=== PATIENT | male | born 1965 | race Caucasian/White ===

== ENCOUNTER 2020-02-02 14:17 | Inpatient (IN) | payer OTHER ==
[~2020-02-02] VITALS: Ht 193 cm; Wt 86.4 kg
[2020-02-02 15:13] LABS: Alanine Aminotransfer (ALT/SGP 18 U/L (12-78); Albumin, Blood 3.1 g/dL (3.4-5.0); Albumin/Globulin Ratio 0.9 (0.8-1.8); Alk Phos 180 U/L (50-136); Anion Gap 9 mmol/L (6-16); Aspartate Aminotrans (AST/SGOT 21 U/L (12-37); Bilirubin, Total 0.5 mg/dL (0.1-1.0); Blood Urea Nitrogen 13 mg/dL (8-24); Bun/Creatinine Ratio 13.9 (12.0-20.0); CO2, Blood 22 mmol/L (21-32); Calcium, Blood 8.1 mg/dL (8.5-10.1); Chloride, Blood 108 mmol/L (98-108); Creatinine, Blood 0.94 mg/dL (0.60-1.20); Globulin, Blood 3.3 g/dL (2.2-4.0); Glomerular Filtration Rate >60 (60-); Glucose, Blood 103 mg/dL (70-99); Potassium, Blood 3.4 mmol/L (3.5-5.5); Sodium, Blood 139 mmol/L (136-145); Total Protein, Blood 6.4 g/dL (6.4-8.2)
[2020-02-02 16:09] LABS: BASOPHILS ABSOLUTE AUTO 0.05 K/mm3 (0.00-0.23); BASOPHILS PERCENT AUTO 0 % (0-2); EOSINOPHILS ABSOLUTE AUTO 0.13 K/mm3 (0.00-0.68); EOSINOPHILS PERCENT AUTO 1 % (0-6); IMMATURE GRAN ABSOLUTE AUTO 0.07 K/mm3 (0.00-0.10); IMMATURE GRAN PERCENT AUTO 1 % (0-1); LYMPHOCYTES ABSOLUTE AUTO 1.26 K/mm3 (0.84-5.20); LYMPHOCYTES PERCENT AUTO 11 % (21-46); MONOCYTES PERCENT AUTO 5 % (4-13); Mean Corpuscular HGB 23.4 pg (26.0-34.0); Mean Corpuscular HGB Conc 28.8 g/dL (31.5-36.5); Mean Corpuscular Volume 81 fL (80-100); Mean Platelet Volume 10.7 fL (9.1-12.4); NEUTROPHILS ABSOLUTE AUTO 9.43 K/mm3 (1.96-9.15); NEUTROPHILS PERCENT AUTO 82 % (41-73); Platelet Count 391 K/mm3 (150-400); RDW Coefficient Variation 16.9 % (11.7-14.2); RDW Standard Deviation 49.6 fL (35.1-46.3); Red Blood Cell Count 2.01 M/mm3 (4.30-5.90); White Blood Cell Count 11.54 K/mm3 (4.00-11.30)
[2020-02-02 16:12] LABS: Hemoglobin 4.7 g/dL (13.5-17.5)
[2020-02-02 16:13] LABS: Hematocrit 16.3 % (37.0-53.0)
[2020-02-02] MEDS ORDERED: PREG50 PO (16:30)
[2020-02-02] MEDS ORDERED: ELIQUIS5 MG PO (16:30)
[2020-02-02 19:31] LABS: Hematocrit 15.4 % (37.0-53.0); Hemoglobin 4.5 g/dL (13.5-17.5)
[2020-02-02 19:32] LABS: International Normalized Ratio 1.07; Prothrombin Time Results 11.4 Sec (9.7-11.5)
[2020-02-03 04:27] LABS: Hematocrit 19.4 % (37.0-53.0); Mean Corpuscular HGB 24.8 pg (26.0-34.0); Mean Corpuscular HGB Conc 30.9 g/dL (31.5-36.5); Mean Corpuscular Volume 80 fL (80-100); Mean Platelet Volume 10.3 fL (9.1-12.4); Platelet Count 357 K/mm3 (150-400); RDW Coefficient Variation 16.5 % (11.7-14.2); RDW Standard Deviation 48.7 fL (35.1-46.3); Red Blood Cell Count 2.42 M/mm3 (4.30-5.90); White Blood Cell Count 7.45 K/mm3 (4.00-11.30)
[2020-02-03 04:46] LABS: Anion Gap 11 mmol/L (6-16); Blood Urea Nitrogen 16 mg/dL (8-24); Bun/Creatinine Ratio 17.1 (12.0-20.0); CO2, Blood 19 mmol/L (21-32); Calcium, Blood 7.2 mg/dL (8.5-10.1); Chloride, Blood 110 mmol/L (98-108); Creatinine, Blood 0.94 mg/dL (0.60-1.20); Glomerular Filtration Rate >60 (60-); Glucose, Blood 82 mg/dL (70-99); Potassium, Blood 3.4 mmol/L (3.5-5.5); Sodium, Blood 140 mmol/L (136-145)
--- NOTE | 2020-02-03 07:52 | NUR ---
SHIFT SUMMARY PT ARRIVED VIA STRETCHER FROM ER START OF SHIFT; PT SELF TRANSFERED TO BED; HGB 4.5; 2 UNITS PRBC TRANSFUSED; VSS; DENIES CHEST PAIN; O2 SATS >93 ON RA; PT C/O CHRONIC PAIN DUE TO RA AND BUERGER'S DISEASE; FENTANYL AND DILAUDID ADMINISTERED PER EMAR; PT STATES HE USES MARIJUANA DAILY, REPORTS USING 4 GRAMS DEPENDING ON "HOW BAD THE PAIN IS THAT DAY"; WARM BLANKETS BROUGHT TO PT HE STATES HE IS "ALWAYS COLD"; PT HAS NO TEETH AND STATES HIS DENTURES ARE AT HOME; AM LABS REPORTED TO PROVIDER W/ HGB OF 6.0; NEW ORDER FOR PRBC GIVEN; CALL LIGHT IN REACH; BED IN LOWEST POSITION; REPORT GIVEN TO DAY SHIFT RN.
[2020-02-03 13:24] LABS: Hematocrit 20.6 % (37.0-53.0); Hemoglobin 6.5 g/dL (13.5-17.5)
--- NOTE | 2020-02-03 19:46 | NUR ---
SHIFT SUMMARY A&O X4, VSS, LOW GRADE TEMP NOTED, PT REFUSED TYLENOL. UNIT PRBC'S INFUSED PER ORDERS, PT TOLERATED INFUSION WITH NO PROBLEMS. PROTONIX GTT INFUSING PER EMAR. PAIN MEDIACTED WITH MG IV DILAUDID. PAIN MEDS CHANGED PER AFTER SPEAKING WITH PT FROM MCG IV FENTANYL Q2 HRS DUE TO INSUFFICIENT PAIN CONTROL. PT IS INDEPENDENT IN THE ROOM, CALLS PRN, VOIDING WNL, NO STOOLS OR EMESIS NOTED. SCD'S ARE ON, CALL LIGHT IN REACH. REPORT GIVEN TO MACRINA CHAU.
[2020-02-04 00:59] LABS: Hematocrit 23.7 % (37.0-53.0); Hemoglobin 7.7 g/dL (13.5-17.5); Mean Corpuscular HGB 26.3 pg (26.0-34.0); Mean Corpuscular HGB Conc 32.5 g/dL (31.5-36.5); Mean Corpuscular Volume 81 fL (80-100); Mean Platelet Volume 10.1 fL (9.1-12.4); Platelet Count 320 K/mm3 (150-400); RDW Coefficient Variation 16.5 % (11.7-14.2); RDW Standard Deviation 48.4 fL (35.1-46.3); Red Blood Cell Count 2.93 M/mm3 (4.30-5.90); White Blood Cell Count 9.55 K/mm3 (4.00-11.30)
[2020-02-04 02:45] LABS: Albumin, Blood 2.6 g/dL (3.4-5.0); Anion Gap 8 mmol/L (6-16); Blood Urea Nitrogen 11 mg/dL (8-24); Bun/Creatinine Ratio 13.2 (12.0-20.0); CO2, Blood 22 mmol/L (21-32); Chloride, Blood 110 mmol/L (98-108); Creatinine, Blood 0.83 mg/dL (0.60-1.20); Glomerular Filtration Rate >60 (60-); Glucose, Blood 82 mg/dL (70-99); Phosphorus, Blood 1.5 mg/dL (2.5-4.9); Potassium, Blood 3.4 mmol/L (3.5-5.5); Sodium, Blood 140 mmol/L (136-145)
--- NOTE | 2020-02-04 07:39 | NUR ---
SHIFT SUMMARY PT A&O; VSS; O2 SATS >93 ON RA; C/O CHRONIC PAIN; DILAUDID GIVEN PER EMAR; PT CONSISTENT AT THE 2HR PAMELA TO CALL FOR PAIN RELIEF; 1 UNIT PRBC ADMINISTERED W/ NO ISSUE; AM LABS HGB IMPROVED TO 7.7; PT NPO IN PREPARATION FOR SCOPE PROCEDURE; CALL LIGHT IN REACH; BED IN LOWEST POSITION; REPORT GIVEN TO DAY SHIFT RN.
--- NOTE | 2020-02-04 19:46 | NUR ---
SHIFT SUMMARY NO ACUTE CHANGES NOTED THROUGH THE DAY. PT CONTINUES TO DENY NAUSEA, NO BM NOTED, VSS, RESP UNLABORED, ON RA. PT HAD EGD THIS AFTERNOON, WAS IN THE ROOM POST PROCEDURE TO SPEAK WITH PT. PT C/O 9/10 PAIN THROUGH THE DAY, HE IS REQUIRING 1 MG IV DILAUDID Q2 HRS. PT WAS ENC TO DECREASE MEDICATION FREQUENCY TOLERATED, EDUCATION PROVIDED, PT IS NON RECEPTIVE, EDUCATION CONT TO BE ENFORCED THROUGH THE SHIFT. PT IS TOLERATING CLEAR FLUIDS, VOIDING WNL. REPORT GIVEN TO NOC RN, CALL LIGHT IN REACH.
--- NOTE | 2020-02-05 03:43 | NUR ---
PROVIDER CALLED DR SHAFFER REGARDING PT'S LAST LAB VALUES (K 3.4, PHOS 1.5, HGB 7.7) AND PT'S RECENT HX OF 4U PRBC'S, EGD 02/04/20, AND REPLENISHING IV FLUIDS. INFORMED THAT THERE HAD NOT BEEN ANY LAB ORDERS PLCED FOR THIS AM. DR SHAFFER STATES THAT SHE WILL REVIEW AND ORDER LABS IF NEEDED.
[2020-02-05 04:25] LABS: BASOPHILS ABSOLUTE AUTO 0.07 K/mm3 (0.00-0.23); BASOPHILS PERCENT AUTO 1 % (0-2); EOSINOPHILS ABSOLUTE AUTO 0.47 K/mm3 (0.00-0.68); EOSINOPHILS PERCENT AUTO 6 % (0-6); Hematocrit 23.1 % (37.0-53.0); Hemoglobin 7.4 g/dL (13.5-17.5); IMMATURE GRAN ABSOLUTE AUTO 0.03 K/mm3 (0.00-0.10); IMMATURE GRAN PERCENT AUTO 0 % (0-1); LYMPHOCYTES ABSOLUTE AUTO 1.85 K/mm3 (0.84-5.20); LYMPHOCYTES PERCENT AUTO 22 % (21-46); MONOCYTES ABSOLUTE AUTO 0.84 K/mm3 (0.16-1.47); MONOCYTES PERCENT AUTO 10 % (4-13); Mean Corpuscular HGB 26.2 pg (26.0-34.0); Mean Corpuscular Volume 82 fL (80-100); Mean Platelet Volume 10.3 fL (9.1-12.4); NEUTROPHILS ABSOLUTE AUTO 5.08 K/mm3 (1.96-9.15); NEUTROPHILS PERCENT AUTO 61 % (41-73); Platelet Count 309 K/mm3 (150-400); RDW Coefficient Variation 17.2 % (11.7-14.2); RDW Standard Deviation 50.7 fL (35.1-46.3); Red Blood Cell Count 2.82 M/mm3 (4.30-5.90); White Blood Cell Count 8.34 K/mm3 (4.00-11.30)
[2020-02-05 04:39] LABS: Albumin, Blood 2.7 g/dL (3.4-5.0); Anion Gap 7 mmol/L (6-16); Blood Urea Nitrogen 6 mg/dL (8-24); Bun/Creatinine Ratio 6.6 (12.0-20.0); CO2, Blood 24 mmol/L (21-32); Chloride, Blood 108 mmol/L (98-108); Creatinine, Blood 0.91 mg/dL (0.60-1.20); Glomerular Filtration Rate >60 (60-); Glucose, Blood 87 mg/dL (70-99); Phosphorus, Blood 1.5 mg/dL (2.5-4.9); Potassium, Blood 3.7 mmol/L (3.5-5.5); Sodium, Blood 139 mmol/L (136-145)
--- NOTE | 2020-02-05 05:24 | NUR ---
END OF SHIFT SUMMARY PATIENT A&0. VSS. O2 >92% ON RA. PATIENT COMPLAINS OF ABDOMEN AND HAND PAIN. ADMINISTERED DILAUDID Q2 PER EMAR. RBC AND H&H LABS STILL LOW PER MORNING RESULTS. PATIENT INDEPENDENT, USES URINAL OFTEN. NO STOOLS NOTED. PT TOLERATED BROTH BUT PREFERRED TEA MOST OF THE NIGHT. PT USED CALL LIGHT PRN. PT IS COOPERATIVE. SLEPT ON AND OFF T/O THE NIGHT. CALL LIGHT WITHIN REACH. BED LOWERED TO LOWEST POSITION. WILL CONTINUE TO MONITOR UNTIL END OF SHIFT.
--- NOTE | 2020-02-05 05:28 | NUR ---
PROVIDER DR SHAFFER CALLED REGARDING AM LABS. HGB DROP FROM 7.7 - 7.5, PHOS REMAINED AT 1.5. UPDATED ON PT'S STATUS POST EGD, HAVING RECEIVED 4U PRBC OVER THE ADMISSION, ETC. ORDERS RECEIVED FOR MEDICATION.
--- NOTE | 2020-02-05 09:58 | NUR ---
AM DAYSHIFT NOTE - TRANSFER TO MEDICAL FLOOR PATIENT ALERT AND ORIENTED X4. RESP E/U ON ROOM AIR. PATIENT MED NO TELE. PATIENT REPORTS ONGOING CHRONIC PAIN OF BILATERAL HANDS - STATES HE SMOKE MARIJUANA AT HOME FOR PAIN NORMALY BECAUSE NO ONE WILL PRESCRIBE HIM PAIN MEDICATIONS. PATIENT ALSO HAS CHRONIC PANCREATITIS THAT IS ONGOING - RELIEVED WITH DILAUDID PER PATIENT - PATIENT REFUSING TO TAKE TYLENOL. PATIENT INDEPENDENT IN ROOM WITH ONLY LIMITATION BEING FINGER AMPUTATIONS. PATIENT LEFT UNIT VIA WHEELCHAIR TO MEDICAL FLOOR ROOM 324 IN NO ACUTE DISTRESS. VSS. REPORT TO MEDICAL FLOOR RN AND MEDICAL FLOOR RN STUDENT.
--- NOTE | 2020-02-05 10:32 | NUR ---
02/05/20 1032 Osvaldo Cowan MONITOR INTACT WITH CONTINUOUS PULSE OXIMETRY AND INTERMITTENT BP. 3-LEAD EKG REVIEWED WITH PHYSICIAN PRIOR TO START OF PROCEDURE.O2 VIA N/C INTACT THROUGHOUT SEDATION/PROCEDURE.PATIENT DETERMINED TO BE ASA APPROPRIATE FOR PROPOFOL SEDATION PRIOR TO START OF PROCEDURE BY DR. B[place]. History, Chart, Medications and Allergies reviewed before start of procedure.
[2020-02-05 13:44] LABS: Hemoglobin 7.7 g/dL (13.5-17.5)
--- NOTE | 2020-02-05 16:33 | NUR ---
SHIFT SUMMARY PT MEDICATED X2 FOR PAIN PER EMAR THIS SHIFT. PT DENIES NAUSEA, SOB. PT HAS POOR PO INTAKE. DIET ADVANCED TO [facility] SOFT FOR DINNER. PT UP STAND BY ASSIST USING URINAL AT BEDSIDE. PROTONIX DRIP RUNNING. NO ACUTE CHANGES THIS SHIFT. CALL LIGHT IN REACH.
[2020-02-05 20:54] LABS: Stool Occult Bld Immuno 1 Positive (NEGATIVE)
--- NOTE | 2020-02-06 05:58 | NUR ---
SHIFT SUMMARY PT HAS RESTED OFF AND ON THIS SHIFT. PT CONTINUES TO HAVE ABD PAIN AND HAS REQUESTED PRN'S Q4HR WHEN THEY ARE DUE. ADVANCED DIET TOLERATED. PT HAS BEEN ABLE TO EAT SOME. PT STILL IS REPORTING SOME NAUSEA. ABD IS SOFT AND TENDER WITH PALPATION. BOWEL TONES HYPERACTIVE. PT HAS HAD SEVERAL BM'S SINCE STARTING MIRALAX AND REQUESTED NOT TO RECEIVE HS DOSE. VITALS ARE STABLE. PT INDEPENDENT AND AMBULATORY IN THE ROOM. POSS DC TODAY. BED IN LOWEST POSITION, CALL LIGHT WITHIN REACH. WILL CONTINUE TO MONITOR AND REPORT TO ONCOMING RN.
--- NOTE | 2020-02-06 06:18 | NUR ---
POSITIVE STOOL SAMPLE DR. SHAFFER NOTIFIED OF POSITIVE STOOL SAMPLE THIS SHIFT. MARINO PATEL PRINCIPAL DATABASE DEVELOPER NOTIFIED. NO REPEAT H&H ORDERED FOR THIS AM. H&H WAS 7.7 WHEN CHECKED YESTERDAY AROUND 1300. RECEIVED ORDER FOR H&H THIS AM.
[2020-02-06 08:07] LABS: Hematocrit 25.7 % (37.0-53.0)
[2020-02-06] MEDS ORDERED: ACET325 PO (09:02)
[2020-02-06] MEDS ORDERED: PANT40 PO (09:02)
[2020-02-06] MEDS ORDERED: Magnesium-Alum360 ML PO (09:03)
--- NOTE | 2020-02-06 12:36 | NUR ---
SUMMARY/DISCHARGE PT DISCHARGED TO HOME, PT FOLLOW UP ALREADY MADE, PT VERBALIZED UNDERSTANDING OF DISCHARGE INSTRUCTIONS AND FOLLOW UP, TRANSPORTATION ARRANGED WITH [facility], PT TAKEN DOWN VIA WHEELCHAIR
== END 2020-02-06 12:35 | disposition home or self-care (01) | DRG 378 ==
LOC: ER 14:17 → PCU 14:18 → MEDS 02-05 09:15
PROVIDERS: Emergency Medicine; Family Medicine; Internal Medicine Gastroenterology; ADMIT Internal Medicine
PROC: 30283B1 Transfusion of Nonautologous 4-Factor Prothrombin Complex Concentrate into Vein, Percutaneous Approach (ICD-10-PCS; 2020-02-02)
PROC: 0DD68ZX Extraction of Stomach, Via Natural or Artificial Opening Endoscopic, Diagnostic (ICD-10-PCS; principal; 2020-02-04 14:30)
DX: K25.4 Chronic or unspecified gastric ulcer with hemorrhage (principal); D62 Acute posthemorrhagic anemia; K86.1 Other chronic pancreatitis; Z87.891 Personal history of nicotine dependence; Z89.029 Acquired absence of unspecified finger(s); Z86.718 Personal history of other venous thrombosis and embolism; E87.6 Hypokalemia; I73.1 Thromboangiitis obliterans [Buerger's disease]; K59.00 Constipation, unspecified; E83.39 Other disorders of phosphorus metabolism
CPT/HCPCS: 36415; 36430; 74175; 74176; 80048; 80053; 80069; 82274; 82728; 83540; 83550; 83690; 85014; 85018; 85025; 85027; 85610; 85730; 86850; 86900; 86901; 86923; 88305; 88342; 93005; 93010; 96361-59; 96374-59; 96375-59; 99285-25; A9270-GY; C1751; C9113; J1170; J2250; J2405; J2704; J2916; J3010; J3480; J7030; J7050; J7060; J7120; P9016; Q9967

== ENCOUNTER → 2020-02-14 | Outpatient (CLI) | payer OTHER ==
[~2020-02-14] MED LIST: ACET325 PO; ELIQUIS5 MG PO; Magnesium-Alum360 ML PO; PANT40 PO; PREG50 PO
[2020-02-14 20:00] LABS: BASOPHILS ABSOLUTE AUTO 0.09 K/mm3 (0.00-0.23); BASOPHILS PERCENT AUTO 1 % (0-2); EOSINOPHILS ABSOLUTE AUTO 0.21 K/mm3 (0.00-0.68); EOSINOPHILS PERCENT AUTO 3 % (0-6); Hematocrit 34.6 % (37.0-53.0); Hemoglobin 9.9 g/dL (13.5-17.5); IMMATURE GRAN ABSOLUTE AUTO 0.03 K/mm3 (0.00-0.10); IMMATURE GRAN PERCENT AUTO 0 % (0-1); LYMPHOCYTES ABSOLUTE AUTO 2.29 K/mm3 (0.84-5.20); LYMPHOCYTES PERCENT AUTO 27 % (21-46); MONOCYTES ABSOLUTE AUTO 0.93 K/mm3 (0.16-1.47); MONOCYTES PERCENT AUTO 11 % (4-13); Mean Corpuscular HGB 24.4 pg (26.0-34.0); Mean Corpuscular HGB Conc 28.6 g/dL (31.5-36.5); Mean Platelet Volume 10.7 fL (9.1-12.4); NEUTROPHILS ABSOLUTE AUTO 4.81 K/mm3 (1.96-9.15); NEUTROPHILS PERCENT AUTO 58 % (41-73); Platelet Count 498 K/mm3 (150-400); RDW Coefficient Variation 18.7 % (11.7-14.2); Red Blood Cell Count 4.05 M/mm3 (4.30-5.90); White Blood Cell Count 8.36 K/mm3 (4.00-11.30)
[2020-02-14 20:06] LABS: Mean Corpuscular Volume 85 fL (80-100)
[2020-02-14 20:16] LABS: Potassium, Blood 4.3 mmol/L (3.5-5.5)
== END | disposition home or self-care (01) ==
LOC: LAB 18:59 → LAB SHORT 18:59
PROVIDERS: Family Medicine
DX: K86.1 Other chronic pancreatitis (principal); D64.9 Anemia, unspecified
CPT/HCPCS: 80051; 83690; 85025

== ENCOUNTER 2020-02-16 19:40 | Emergency (ER) | payer OTHER ==
[~2020-02-16] VITALS: Ht 193 cm; Wt 73.5 kg
[2020-02-16 20:13] LABS: BASOPHILS ABSOLUTE AUTO 0.07 K/mm3 (0.00-0.23); BASOPHILS PERCENT AUTO 1 % (0-2); EOSINOPHILS ABSOLUTE AUTO 0.23 K/mm3 (0.00-0.68); EOSINOPHILS PERCENT AUTO 3 % (0-6); Hematocrit 32.4 % (37.0-53.0); Hemoglobin 9.5 g/dL (13.5-17.5); IMMATURE GRAN ABSOLUTE AUTO 0.04 K/mm3 (0.00-0.10); IMMATURE GRAN PERCENT AUTO 0 % (0-1); LYMPHOCYTES ABSOLUTE AUTO 2.36 K/mm3 (0.84-5.20); LYMPHOCYTES PERCENT AUTO 26 % (21-46); MONOCYTES ABSOLUTE AUTO 0.59 K/mm3 (0.16-1.47); MONOCYTES PERCENT AUTO 7 % (4-13); Mean Corpuscular HGB 24.3 pg (26.0-34.0); Mean Corpuscular HGB Conc 29.3 g/dL (31.5-36.5); Mean Corpuscular Volume 83 fL (80-100); NEUTROPHILS ABSOLUTE AUTO 5.73 K/mm3 (1.96-9.15); NEUTROPHILS PERCENT AUTO 64 % (41-73); Platelet Count 527 K/mm3 (150-400); RDW Coefficient Variation 18.5 % (11.7-14.2); Red Blood Cell Count 3.91 M/mm3 (4.30-5.90); White Blood Cell Count 9.02 K/mm3 (4.00-11.30)
[2020-02-16 20:29] LABS: Alanine Aminotransfer (ALT/SGP 19 U/L (12-78); Albumin, Blood 2.9 g/dL (3.4-5.0); Albumin/Globulin Ratio 0.7 (0.8-1.8); Alk Phos 321 U/L (50-136); Anion Gap 7 mmol/L (6-16); Aspartate Aminotrans (AST/SGOT 46 U/L (12-37); Bilirubin, Total 0.4 mg/dL (0.1-1.0); Blood Urea Nitrogen 13 mg/dL (8-24); Bun/Creatinine Ratio 15.1 (12.0-20.0); CO2, Blood 24 mmol/L (21-32); Calcium, Blood 8.9 mg/dL (8.5-10.1); Chloride, Blood 105 mmol/L (98-108); Creatinine, Blood 0.86 mg/dL (0.60-1.20); Globulin, Blood 4.2 g/dL (2.2-4.0); Glomerular Filtration Rate >60 (60-); Glucose, Blood 113 mg/dL (70-99); Potassium, Blood 3.6 mmol/L (3.5-5.5); Sodium, Blood 136 mmol/L (136-145); Total Protein, Blood 7.1 g/dL (6.4-8.2); Troponin I <0.015 ng/mL (0.000-0.040)
== END 2020-02-16 22:15 | disposition home or self-care (01) ==
LOC: ER 19:40
PROVIDERS: Physician Assistant
DX: K85.90 Acute pancreatitis without necrosis or infection, unspecified (principal); K86.1 Other chronic pancreatitis; Z79.899 Other long term (current) drug therapy; Z79.01 Long term (current) use of anticoagulants; Z86.718 Personal history of other venous thrombosis and embolism; Z87.891 Personal history of nicotine dependence
CPT/HCPCS: 36415; 80053; 82272; 83690; 84484; 85025; 93005; 93010; 96374; 96375; 96376; 99285-25; A9270; J1170; J2405

== ENCOUNTER 2020-02-17 23:38 | Inpatient (IN) | payer OTHER ==
[~2020-02-17] VITALS: Ht 193 cm; Wt 75.9 kg
[2020-02-18 01:14] LABS: BASOPHILS ABSOLUTE AUTO 0.07 K/mm3 (0.00-0.23); BASOPHILS PERCENT AUTO 1 % (0-2); EOSINOPHILS PERCENT AUTO 1 % (0-6); Hematocrit 31.4 % (37.0-53.0); Hemoglobin 9.5 g/dL (13.5-17.5); IMMATURE GRAN ABSOLUTE AUTO 0.04 K/mm3 (0.00-0.10); IMMATURE GRAN PERCENT AUTO 0 % (0-1); LYMPHOCYTES PERCENT AUTO 19 % (21-46); MONOCYTES ABSOLUTE AUTO 0.69 K/mm3 (0.16-1.47); MONOCYTES PERCENT AUTO 7 % (4-13); Mean Corpuscular HGB 24.7 pg (26.0-34.0); Mean Corpuscular HGB Conc 30.3 g/dL (31.5-36.5); Mean Corpuscular Volume 82 fL (80-100); Mean Platelet Volume 9.9 fL (9.1-12.4); NEUTROPHILS ABSOLUTE AUTO 6.99 K/mm3 (1.96-9.15); NEUTROPHILS PERCENT AUTO 72 % (41-73); Platelet Count 663 K/mm3 (150-400); RDW Coefficient Variation 18.5 % (11.7-14.2); RDW Standard Deviation 55.4 fL (35.1-46.3); Red Blood Cell Count 3.85 M/mm3 (4.30-5.90); White Blood Cell Count 9.79 K/mm3 (4.00-11.30)
[2020-02-18 01:33] LABS: Alanine Aminotransfer (ALT/SGP 161 U/L (12-78); Albumin, Blood 3.2 g/dL (3.4-5.0); Albumin/Globulin Ratio 0.7 (0.8-1.8); Alk Phos 501 U/L (50-136); Anion Gap 10 mmol/L (6-16); Aspartate Aminotrans (AST/SGOT 269 U/L (12-37); Bilirubin, Total 1.7 mg/dL (0.1-1.0); Blood Urea Nitrogen 13 mg/dL (8-24); Bun/Creatinine Ratio 13.3 (12.0-20.0); CO2, Blood 23 mmol/L (21-32); Calcium, Blood 9.7 mg/dL (8.5-10.1); Chloride, Blood 105 mmol/L (98-108); Creatinine, Blood 0.98 mg/dL (0.60-1.20); Globulin, Blood 4.4 g/dL (2.2-4.0); Glomerular Filtration Rate >60 (60-); Glucose, Blood 106 mg/dL (70-99); Potassium, Blood 3.7 mmol/L (3.5-5.5); Sodium, Blood 138 mmol/L (136-145); Total Protein, Blood 7.6 g/dL (6.4-8.2)
[2020-02-18 05:32] LABS: CHOL/HDL RATIO 8.8; Cholesterol 167 mg/dL (50-200); HDL Cholesterol 19 mg/dL (>39); LDL/HDL RATIO 6.6; Low Density Lipoprotein Chol 125 mg/dL (0-110); Triglycerides 113 mg/dL (30-160); Very Low Density Lipoprot Chol 22 mg/dL (6-32)
--- NOTE | 2020-02-18 06:40 | NUR ---
SHIFT SUMMARY PATIENT ARRIVED TO THE MEDICAL UNIT AT 0421 VIA STRETCHER. PATIENT IS ALERT AND ORIENTED X4 AND IS VERY PLEASANT. PATIENT IS STEADY ON HIS FEET AND IS ABLE TO SAFELY AMBULATE INDEPENDENTLY. PATIENT EXPERIENCING HIGH LEVELS OF ABDOMINAL PAIN DUE TO PANCREATITIS. IV PATENT AND INFUSING WITH NORMAL SALINE AT 100 ML/HR. BED IN LOWEST POSITION WITH WHEELS LOCKED. CALL LIGHT AND BELONGINGS WITHIN REACH. REPORT GIVEN TO ONCOMING RN.
--- NOTE | 2020-02-18 17:34 | NUR ---
SUMMARY PT IS A/O X4, PLEASANT AFFECT, IND IN ROOM. DX PANCREATITIS, LIPASE ELEVATED @ 2849, LFT'S ELEVATED. PT STATE HX RECURRENT PANCREATITIS. HE WAS NPO @ ONSET OF SHIFT, DR VANEGAS IN TO SEE HIM, STATE MAY HAVE ICE CHIPS, PO MEDS. PT STATE TOLD HIM WHEN HE FEELS READY TO TRY DIET ADV TO HAVE RN CALL HOWEVER HE STATE D/T ABD PAIN NOT READY TO ADV TODAY. STATE CONTINUING UPPER ABD PAIN, HAVE GIVEN PRN FENTANYL 50MCG ALTERNATING w DILAUDID 2MG APPROX Q3 TODAY FOR PAIN CONTROL/RELIEF. NS INFUSING @ 1OO ML/HR X 1.5 LITERS, NEARLY FINISHED. URINE VOIDS CONCENTRATED/EULOGIO. VSS.
--- NOTE | 2020-02-18 23:04 | NUR ---
1.5L NS INFUSED AND PT SL AT THIS TIME PER RX.
--- NOTE | 2020-02-19 04:45 | NUR ---
SUMMARY: PT IS A/OX4, INDEPENDENT AND CALLS APPROPRIATELY. HE REMAINS NPO EXCEPT ICE AND MEDS AND CONT'S TO HAVE MID ABDO AND L.LOWER QUAD PAIN. PT MEDICATED APPROX Q3H PRN W/FENT 50 MCG AND DILAUDID 2MG IV FOR TOLERABLE PAIN CONTROL. HE'S HAD INTERMITTENT NAUSEA W/ZOFRAN RECIEVED PRN FOR GOOD EFFECT. PT USES URINAL BY SELF AND WAS SL AFTER 1.5L NS INFUSED PER EMAR. IV IS PATENT TO JeraldFA/AC. NO ACUTE CHANGES, VSS/AFEBRILE. WCTM/REPORT TO DAY RN.
[2020-02-19 04:56] LABS: BASOPHILS ABSOLUTE AUTO 0.07 K/mm3 (0.00-0.23); BASOPHILS PERCENT AUTO 1 % (0-2); EOSINOPHILS PERCENT AUTO 6 % (0-6); Hematocrit 27.8 % (37.0-53.0); Hemoglobin 8.2 g/dL (13.5-17.5); IMMATURE GRAN ABSOLUTE AUTO 0.01 K/mm3 (0.00-0.10); IMMATURE GRAN PERCENT AUTO 0 % (0-1); LYMPHOCYTES ABSOLUTE AUTO 1.84 K/mm3 (0.84-5.20); LYMPHOCYTES PERCENT AUTO 34 % (21-46); MONOCYTES PERCENT AUTO 9 % (4-13); Mean Corpuscular HGB 24.6 pg (26.0-34.0); Mean Corpuscular HGB Conc 29.5 g/dL (31.5-36.5); Mean Corpuscular Volume 84 fL (80-100); Mean Platelet Volume 10.1 fL (9.1-12.4); NEUTROPHILS ABSOLUTE AUTO 2.77 K/mm3 (1.96-9.15); NEUTROPHILS PERCENT AUTO 50 % (41-73); Platelet Count 561 K/mm3 (150-400); RDW Coefficient Variation 18.7 % (11.7-14.2); RDW Standard Deviation 56.8 fL (35.1-46.3); Red Blood Cell Count 3.33 M/mm3 (4.30-5.90); White Blood Cell Count 5.49 K/mm3 (4.00-11.30)
[2020-02-19 05:26] LABS: Alanine Aminotransfer (ALT/SGP 131 U/L (12-78); Albumin, Blood 2.8 g/dL (3.4-5.0); Albumin/Globulin Ratio 0.7 (0.8-1.8); Alk Phos 484 U/L (50-136); Anion Gap 5 mmol/L (6-16); Aspartate Aminotrans (AST/SGOT 142 U/L (12-37); Bilirubin, Total 2.3 mg/dL (0.1-1.0); Blood Urea Nitrogen 9 mg/dL (8-24); Bun/Creatinine Ratio 11.3 (12.0-20.0); CO2, Blood 25 mmol/L (21-32); Chloride, Blood 107 mmol/L (98-108); Creatinine, Blood 0.79 mg/dL (0.60-1.20); Glomerular Filtration Rate >60 (60-); Glucose, Blood 83 mg/dL (70-99); Potassium, Blood 3.6 mmol/L (3.5-5.5); Sodium, Blood 137 mmol/L (136-145); Total Protein, Blood 6.8 g/dL (6.4-8.2)
--- NOTE | 2020-02-19 16:50 | NUR ---
SUMMARY PT CONTINUES TO STATE UPPER ABD PAIN THIS AM. DR VANEGAS IN TO SEE HIM ORDER START CL DIET, SHE CAUTION PT TO TAKE IN SM AMTS, SLOWLY, CAUTIOUSLY AND TO STOP IF PAIN OR NAUSEA INCREASES. HE HAS BEEN ABLE TO TOLERATE IN SM AMTS. HE STATE PAIN SOMEWHAT IMPROVED FROM PREVIOUS DAY HOWEVER CONTINUES, HE HAS CALLED FOR PAIN MEDICATION APPROX Q3 HRS. ALTERNATE BETWEEN DILAUDID & FENTANYL PREVIOUS DAY FOR PAIN RELIEF/CONTROL. HE IS AFEBRILE, VSS. HX BUERGERS DISEASE w MULT FINGER AMPUTATIONS BOTH HANDS HOWEVER MOSTLY IND IN ROOM, MINIMAL ASSIST.
--- NOTE | 2020-02-20 04:13 | NUR ---
SUMMARY: PT A/OX4, CALLS APPROPRIATELY AND IS PLEASANT/COOPERATIVE W/CARE. HE CONT'S TO HAVE ABDO PAIN AND REQUESTS PRN PAIN MEDS APPROX Q3H. RN ALTERNATED DILAUDID 2MG IV AND FENTANYL 50MCG IV T/O NOCTE FOR TOLERABLE RELIEF BUT PT NEVER REPORTS PAIN BETTER THAN 6/10. HE IS TOLERATING CLEAR LIQ'S IN SMALL AMTS AT A TIME AND IS DOING WELL TO SELF MONITOR THIS. HE HAS HX BUERGERS DISEASE W/MULTI FINGER AMPUTATIONS BUT IS INDEPENDENT IN ROOM AND REQ'S VERY MINIMAL ASSIST. PT USES URINAL AND AMBULATES TO TOILET PRN. PG PATENT TO L.ARM AND IS SL. VSS/AFEBRILE AND NO ACUTE CHANGES. WCTM AND REPORT TO DAY RN.
[2020-02-20 06:36] LABS: Hematocrit 26.9 % (37.0-53.0)
--- NOTE | 2020-02-20 06:50 | NUR ---
SUMMARY: A/OX4, CALLS APPROPRIATELY AND INDEPENDENT IN ROOM. HE'S DENIED PAIN, NAUSEA AND ALL OTHER COMPLAINTS THIS SHIFT AND HAS NOT REQUESTED PYRIDIUM PRN. ROCEPHIN AND VANCO BEING RECIEVED IV FOR PYELONEPHRITIS THEN SL. HE BEGAN SHIFT IN NSR W/PAC'S AT 90'S-100'S BPM BUT CONVERTED TO AFIB THIS SHIFT AT 0335. HE HAS KNOWN HX AFIB AND IS ON METOPROLOL AND CARDIZEM AT BASELINE. PT REMAINED ASYMTOMATIC OF CARDIAC DISTRESS AND AWOKE TO DENY CP, DIZZYNESS, NAUSEA AND SOB DESPITE CONVERSION. HIS HR AVERAGED 80'S-90'S BUT TRENDED UP TO 120'S PER PCU DECISION SCIENCE ANALYST WHILE DISCUSSING AFIB W/MD. HE ADMITTED TO AMBULATING IN ROOM AT THAT TIME W/SOME STRAINING TO VOID. WAS AWARE, SEE PREVIOUS NOTE FOR DETAILS BUT HR RESOLVED SPONTANEOUSLY UPON SETTLING IN BED AND NO STAT MEDS WERE REQUIRED. INCREASED PT'S LOVENOX SQ DOSE THIS AM AND 1ST DOSE WAS RECIEVED. PT AWARE TO NOTIFY STAFF IF HE BECOMES SYMPTOMATIC OR EXPERIENCES ANY CHANGES. VSS T/O NOCTE AND REMAINED SO DURING COVERSION TO AFIB. REPORT PROVIDED TO DAY RN.
[2020-02-20 06:53] LABS: Alanine Aminotransfer (ALT/SGP 99 U/L (12-78); Albumin, Blood 2.8 g/dL (3.4-5.0); Albumin/Globulin Ratio 0.7 (0.8-1.8); Alk Phos 421 U/L (50-136); Anion Gap 3 mmol/L (6-16); Aspartate Aminotrans (AST/SGOT 78 U/L (12-37); Bilirubin, Total 0.8 mg/dL (0.1-1.0); Blood Urea Nitrogen 5 mg/dL (8-24); CO2, Blood 27 mmol/L (21-32); Calcium, Blood 7.9 mg/dL (8.5-10.1); Chloride, Blood 107 mmol/L (98-108); Creatinine, Blood 0.83 mg/dL (0.60-1.20); Globulin, Blood 3.8 g/dL (2.2-4.0); Glomerular Filtration Rate >60 (60-); Glucose, Blood 110 mg/dL (70-99); Potassium, Blood 4.2 mmol/L (3.5-5.5); Sodium, Blood 137 mmol/L (136-145); Total Protein, Blood 6.6 g/dL (6.4-8.2)
--- NOTE | 2020-02-20 17:48 | NUR ---
PT PLEASANT COOP TODAY. FOCUSED ON WHEN CAN GET PAIN MEDS. PRESENTS QUITE PLEASANT AND RELAXED, BUT STATES IN 6-8 PAIN MOST OF TIME. STATES DID EAT LUNCH WITHOUT MUCH PAIN . INDEPENDANT IN ROOM. BED IN LOW POSITION, CALL LITE IN REACH, CALLS APPRIOP
--- NOTE | 2020-02-21 09:14 | NUR ---
SUMMARY PT GALDINO ESPINOSA PAIN CONTROL DISCUSSED GETS IRRITABLE AND STATES NO ONE CARES AND HIS DOCTORS HAVE NOT HELPED HIM GET TO A PAIN DR AND NOT ANY OF THE MULTIPLE HOSPITALS HE LISTS UP AND DOWN IV [facility] HAVE DONE ANYTHING EFFECTIVE FOR HIS PAIN. STATES IF THEY DISCONTINUE HIS IV DILAUDID HEWILL LEAVE DUE TO CHRONIC PAIN.THIS RNLISTENED AND ENCOURAGED PT.IGAVE MEDS PER ORDERS WHEN PTREQUESTED. I ADVISED PT WE WILL REQUEST OF HOSPITAL PHYSICIAN TO POSSIBLY ORDER OUTPT CX WITH PAIN DOCTOR. I DID ADVISE PT HE JEANNINE NEED TO DETERMINE IF HIS INSURANCE WILL COVER OUTPT CX.HOWEVER, WE WILL STILL ASK FOR CXORDER FOR OUTPT. PT REPORTS PLEASED WITH THIS.
[2020-02-21] MEDS ORDERED: DOCU100 PO (13:14)
[2020-02-21] MEDS ORDERED: Norco 5-325 Ta1 EACH PO (13:15)
[2020-02-21] MEDS ORDERED: CREON DR 6,0001 EACH PO (13:17)
[2020-02-21] MEDS ORDERED: ONDA4ODT SL (13:18)
[2020-02-21] MEDS ORDERED: PANT40 PO (13:18)
[2020-02-21] MEDS ORDERED: SENN187 PO (13:19)
--- NOTE | 2020-02-21 15:47 | NUR ---
SHIFT SUMMARY PT RESTING QUIETLY DURING SHIFT REPORT. MEDICATED FOR PAIN PRIOR TO REPORT. PT WOKE FOR CARE. INDEPENDENT IN RM. PT ABLE TO TOLERATE BREAKFAST AND LUNCH. ISTRATE IN TO SEE PT. D/C ORDERS PLACED. PT DID NOT APPEAR IN ANY ACUTE DISTRESS THIS SHIFT, BUT MEDICATED PER EMAR AND PT REQUEST. PT TALKATIVE AND JOKING WITH STAFF. ASSISTED OUT TO CAB VIA W/C. D/C MEDS FAXED TO [facility] PER PT REQUEST.
== END 2020-02-21 13:46 | disposition home or self-care (01) | DRG 440 ==
LOC: ER 23:38 → MEDS 02-18 03:56
PROVIDERS: Emergency Medicine; Internal Medicine; ADMIT Internal Medicine
DX: K85.90 Acute pancreatitis without necrosis or infection, unspecified (principal); K86.1 Other chronic pancreatitis; D64.9 Anemia, unspecified; I72.8 Aneurysm of other specified arteries; R94.5 Abnormal results of liver function studies; K25.9 Gastric ulcer, unspecified as acute or chronic, without hemorrhage or perforation; I73.1 Thromboangiitis obliterans [Buerger's disease]; G47.9 Sleep disorder, unspecified; M19.90 Unspecified osteoarthritis, unspecified site; G43.909 Migraine, unspecified, not intractable, without status migrainosus; G44.89 Other headache syndrome; Z89.029 Acquired absence of unspecified finger(s); Z86.718 Personal history of other venous thrombosis and embolism; Z87.891 Personal history of nicotine dependence
CPT/HCPCS: 36415; 74177; 80053; 80061; 83690; 85014; 85018; 85025; 96361; 96374; 96375; 96376; 99285-25; A9270-GY; C1751; C9113; J1170; J2405; J3010; J7030; Q9967

== ENCOUNTER 2020-03-06 13:29 | Inpatient (IN) | payer OTHER ==
[~2020-03-06] VITALS: Ht 193 cm; Wt 77.2 kg
[~2020-03-06 13:29] MED LIST changes: +CREON DR 12,001 EACH PO; +CREON DR 6,0001 EACH PO; +DOCU100 PO; +HYDR1TAB94 PO; +Norco 5-325 Ta1 EACH PO; +ONDA4ODT SL; +PROM25 PO; +SENN187 PO
[2020-03-06 14:52] LABS: BASOPHILS ABSOLUTE AUTO 0.06 K/mm3 (0.00-0.23); BASOPHILS PERCENT AUTO 1 % (0-2); EOSINOPHILS ABSOLUTE AUTO 0.15 K/mm3 (0.00-0.68); EOSINOPHILS PERCENT AUTO 1 % (0-6); Hematocrit 32.8 % (37.0-53.0); Hemoglobin 10.2 g/dL (13.5-17.5); IMMATURE GRAN ABSOLUTE AUTO 0.05 K/mm3 (0.00-0.10); IMMATURE GRAN PERCENT AUTO 0 % (0-1); LYMPHOCYTES ABSOLUTE AUTO 1.86 K/mm3 (0.84-5.20); LYMPHOCYTES PERCENT AUTO 14 % (21-46); MONOCYTES ABSOLUTE AUTO 0.82 K/mm3 (0.16-1.47); MONOCYTES PERCENT AUTO 6 % (4-13); Mean Corpuscular HGB 25.1 pg (26.0-34.0); Mean Corpuscular HGB Conc 31.1 g/dL (31.5-36.5); Mean Corpuscular Volume 81 fL (80-100); Mean Platelet Volume 9.8 fL (9.1-12.4); NEUTROPHILS ABSOLUTE AUTO 10.14 K/mm3 (1.96-9.15); NEUTROPHILS PERCENT AUTO 78 % (41-73); Platelet Count 317 K/mm3 (150-400); RDW Coefficient Variation 22.6 % (11.7-14.2); RDW Standard Deviation 65.7 fL (35.1-46.3); Red Blood Cell Count 4.06 M/mm3 (4.30-5.90); White Blood Cell Count 13.08 K/mm3 (4.00-11.30)
[2020-03-06 15:07] LABS: Alanine Aminotransfer (ALT/SGP 35 U/L (12-78); Albumin, Blood 3.2 g/dL (3.4-5.0); Albumin/Globulin Ratio 0.8 (0.8-1.8); Alk Phos 351 U/L (50-136); Anion Gap 8 mmol/L (6-16); Aspartate Aminotrans (AST/SGOT 53 U/L (12-37); Bilirubin, Total 0.5 mg/dL (0.1-1.0); Blood Urea Nitrogen 10 mg/dL (8-24); Bun/Creatinine Ratio 10.9 (12.0-20.0); CO2, Blood 25 mmol/L (21-32); Calcium, Blood 8.8 mg/dL (8.5-10.1); Chloride, Blood 104 mmol/L (98-108); Creatinine, Blood 0.91 mg/dL (0.60-1.20); Globulin, Blood 4.1 g/dL (2.2-4.0); Glomerular Filtration Rate >60 (60-); Glucose, Blood 96 mg/dL (70-99); Potassium, Blood 3.9 mmol/L (3.5-5.5); Sodium, Blood 137 mmol/L (136-145); Total Protein, Blood 7.3 g/dL (6.4-8.2)
--- NOTE | 2020-03-06 18:36 | NUR ---
ASSUMED CARE OF PT AT 1724 UPON HIS ARRIVAL FROM ED. A&O X 4, PLEASANT. C/O /10 ABDOMINAL PAIN; MEDICATED WITH DILAUDID WITH GOOD RELIEF. DENIES NAUSEA, LBM TODAY, NORMAL PER PT REPORT. AMBULATES INDEPENDENTLY. PLAN IS NPO FOR BOWEL REST AND PAIN CONTROL.
[2020-03-06 20:42] LABS: Source, Urine Clean Catch
[2020-03-06 20:45] LABS: Bilirubin, Urine Neg (Neg); Blood, Urine Neg (Neg); Glucose Qualitative, Urine Neg (Neg); Ketones, Urine Neg (Neg); Leukocyte Esterase, Urine Neg (Neg); Nitrite, Urine Neg (Neg); Protein, Urine Neg (Neg); Urobilinogen, Urine NORM (Normal)
[2020-03-06 20:46] LABS: Appearance, Urine Clear (Clear); Color, Urine Yellow (P-Yellow)
[2020-03-07 04:42] LABS: Hematocrit 31.8 % (37.0-53.0); Hemoglobin 9.4 g/dL (13.5-17.5); Mean Corpuscular HGB 24.8 pg (26.0-34.0); Mean Corpuscular HGB Conc 29.6 g/dL (31.5-36.5); Mean Corpuscular Volume 84 fL (80-100); Mean Platelet Volume 10.3 fL (9.1-12.4); Platelet Count 321 K/mm3 (150-400); RDW Coefficient Variation 22.7 % (11.7-14.2); RDW Standard Deviation 68.6 fL (35.1-46.3); Red Blood Cell Count 3.79 M/mm3 (4.30-5.90); White Blood Cell Count 5.01 K/mm3 (4.00-11.30)
[2020-03-07 05:09] LABS: Alanine Aminotransfer (ALT/SGP 178 U/L (12-78); Albumin, Blood 3.2 g/dL (3.4-5.0); Albumin/Globulin Ratio 0.9 (0.8-1.8); Alk Phos 463 U/L (50-136); Anion Gap 5 mmol/L (6-16); Aspartate Aminotrans (AST/SGOT 369 U/L (12-37); Bilirubin, Total 1.3 mg/dL (0.1-1.0); Blood Urea Nitrogen 8 mg/dL (8-24); Bun/Creatinine Ratio 9.2 (12.0-20.0); CO2, Blood 25 mmol/L (21-32); Chloride, Blood 107 mmol/L (98-108); Creatinine, Blood 0.87 mg/dL (0.60-1.20); Globulin, Blood 3.7 g/dL (2.2-4.0); Glomerular Filtration Rate >60 (60-); Glucose, Blood 106 mg/dL (70-99); Potassium, Blood 4.1 mmol/L (3.5-5.5); Sodium, Blood 137 mmol/L (136-145); Total Protein, Blood 6.9 g/dL (6.4-8.2)
--- NOTE | 2020-03-07 05:36 | NUR ---
SUMMARY PT CONTINUES TO HAVE ABD PAIN. PT RESPONDS WELL TO TX PER EMAR. PT DENIED ANY NAUSEA DURING SHIFT. PT HAS BEEN AWAKE MOST OF SHIFT. PT CURRENTLY RESTING AND IN NO DISTRESS. CALL LIGHT IN REACH.
--- NOTE | 2020-03-07 19:25 | NUR ---
SHIFT SUMMARY. A&OX4, INDEPENDENT IN ROOM, PLEASANT AND COOPERATIVE WITH CARE. PT WITH CONSTANT ABD PAIN THAT IS MANAGED WELL WITH CURRENT ORDERS. PT C/O NAUSEA WITHOUT VOMITTING TWICE THIS SHIFT, MANAGED WELL WITH CURRENT ORDERS. NO SOB. CONTINUES WITH NPO EXCEPT FOR ICE CHIPS. NO NEW CHANGES OR CONCERNS.
[2020-03-08 05:55] LABS: BASOPHILS ABSOLUTE AUTO 0.05 K/mm3 (0.00-0.23); BASOPHILS PERCENT AUTO 1 % (0-2); EOSINOPHILS ABSOLUTE AUTO 0.46 K/mm3 (0.00-0.68); EOSINOPHILS PERCENT AUTO 9 % (0-6); Hematocrit 31.4 % (37.0-53.0); Hemoglobin 9.1 g/dL (13.5-17.5); IMMATURE GRAN ABSOLUTE AUTO 0.01 K/mm3 (0.00-0.10); IMMATURE GRAN PERCENT AUTO 0 % (0-1); LYMPHOCYTES PERCENT AUTO 35 % (21-46); MONOCYTES ABSOLUTE AUTO 0.44 K/mm3 (0.16-1.47); MONOCYTES PERCENT AUTO 9 % (4-13); Mean Corpuscular HGB 24.5 pg (26.0-34.0); Mean Corpuscular Volume 85 fL (80-100); Mean Platelet Volume 10.4 fL (9.1-12.4); NEUTROPHILS ABSOLUTE AUTO 2.33 K/mm3 (1.96-9.15); NEUTROPHILS PERCENT AUTO 46 % (41-73); Platelet Count 280 K/mm3 (150-400); RDW Coefficient Variation 22.6 % (11.7-14.2); Red Blood Cell Count 3.71 M/mm3 (4.30-5.90); White Blood Cell Count 5.09 K/mm3 (4.00-11.30)
[2020-03-08 06:53] LABS: Alanine Aminotransfer (ALT/SGP 145 U/L (12-78); Albumin, Blood 3.1 g/dL (3.4-5.0); Albumin/Globulin Ratio 0.8 (0.8-1.8); Alk Phos 464 U/L (50-136); Anion Gap 7 mmol/L (6-16); Aspartate Aminotrans (AST/SGOT 157 U/L (12-37); Bilirubin, Total 0.7 mg/dL (0.1-1.0); Blood Urea Nitrogen 6 mg/dL (8-24); Bun/Creatinine Ratio 7.3 (12.0-20.0); CO2, Blood 22 mmol/L (21-32); Calcium, Blood 8.2 mg/dL (8.5-10.1); Chloride, Blood 108 mmol/L (98-108); Creatinine, Blood 0.83 mg/dL (0.60-1.20); Globulin, Blood 3.9 g/dL (2.2-4.0); Glomerular Filtration Rate >60 (60-); Glucose, Blood 76 mg/dL (70-99); Potassium, Blood 3.9 mmol/L (3.5-5.5); Sodium, Blood 137 mmol/L (136-145)
[2020-03-08 06:54] LABS: Percent Saturation 25.4 % (20.0-50.0)
[2020-03-08] MEDS ORDERED: HYDACE10B PO (11:50)
--- NOTE | 2020-03-08 12:07 | NUR ---
DISCHARGE INSTRUCTIONS REVIEWED WITH PT. IVX2 DC'D INTACT. RX FAXED TO [facility] AND HARD SCRIPT FOR NORCO GIVEN TO PT. [facility] CALLED FOR [facility] RIDE HOME, AWAITING RIDE AT THIS TIME. PT REPORTS HE WILL CALL AND SCHEDULE F/U APPT WITH PCP AND HE HAS REFERRAL OUT FOR A SCOPE IN [place]. PT WAS REQUESTING TO GO HOME TODAY, STATES HE CAN DEAL WITH THE PAIN AT HOME.
--- NOTE | 2020-03-08 12:17 | NUR ---
PT DISCHAGRED HOME VIA TAXI AT 1216, PT ESCORTED OUT VIA W/C.
[2020-03-12] MEDS ORDERED: CREON DR 12,001 EACH PO (16:02)
[2020-03-14] MEDS ORDERED: METR500 PO (17:41)
[2020-03-14] MEDS ORDERED: CIPR500 PO (17:42)
[2020-03-14] MEDS ORDERED: MIRALAX17 GM PO (17:42)
[2020-03-14] MEDS ORDERED: DOCU100 PO (17:43)
== END 2020-03-08 12:16 | disposition home or self-care (01) | DRG 440 ==
LOC: ER 13:29 → MEDS 16:18
PROVIDERS: Emergency Medicine; Nurse Practitioner Acute Care; ADMIT Internal Medicine
DX: K85.90 Acute pancreatitis without necrosis or infection, unspecified (principal); K86.1 Other chronic pancreatitis; J43.9 Emphysema, unspecified; D64.9 Anemia, unspecified; Z86.718 Personal history of other venous thrombosis and embolism; Z87.891 Personal history of nicotine dependence; I73.1 Thromboangiitis obliterans [Buerger's disease]; Z79.01 Long term (current) use of anticoagulants
CPT/HCPCS: 36415; 71046; 80053; 81003; 82728; 83540; 83550; 83690; 85025; 85027; 86850; 86900; 86901; 93005; 93010; 96361; 96374; 96375; 96376; 99285-25; G0378; J0780; J1170; J1885; J2405; J3480; J7030

== ENCOUNTER → 2020-05-20 | Outpatient (CLI) | payer OTHER ==
[~2020-05-20] MED LIST changes: +CIPR500 PO; +HYDACE10B PO; +METR500 PO; +MIRALAX17 GM PO
== END | disposition home or self-care (01) ==
LOC: LAB SHORT 15:00 → LAB 15:00
DX: D50.9 Iron deficiency anemia, unspecified (principal)
CPT/HCPCS: 82607; 82746

== ENCOUNTER 2020-06-13 12:57 | Inpatient (IN) | payer OTHER ==
[~2020-06-13] VITALS: Ht 193 cm; Wt 77.1 kg
[2020-06-13 14:35] LABS: BASOPHILS ABSOLUTE AUTO 0.07 K/mm3 (0.00-0.23); BASOPHILS PERCENT AUTO 1 % (0-2); EOSINOPHILS ABSOLUTE AUTO 0.07 K/mm3 (0.00-0.68); EOSINOPHILS PERCENT AUTO 1 % (0-6); Hemoglobin 8.7 g/dL (13.5-17.5); IMMATURE GRAN ABSOLUTE AUTO 0.02 K/mm3 (0.00-0.10); IMMATURE GRAN PERCENT AUTO 0 % (0-1); LYMPHOCYTES ABSOLUTE AUTO 1.02 K/mm3 (0.84-5.20); LYMPHOCYTES PERCENT AUTO 10 % (21-46); MONOCYTES ABSOLUTE AUTO 0.65 K/mm3 (0.16-1.47); MONOCYTES PERCENT AUTO 6 % (4-13); Mean Corpuscular HGB Conc 28.1 g/dL (31.5-36.5); Mean Corpuscular Volume 82 fL (80-100); Mean Platelet Volume 9.3 fL (9.1-12.4); NEUTROPHILS ABSOLUTE AUTO 8.86 K/mm3 (1.96-9.15); NEUTROPHILS PERCENT AUTO 83 % (41-73); Platelet Count 588 K/mm3 (150-400); RDW Coefficient Variation 21.8 % (11.7-14.2); RDW Standard Deviation 64.5 fL (35.1-46.3); Red Blood Cell Count 3.78 M/mm3 (4.30-5.90); White Blood Cell Count 10.69 K/mm3 (4.00-11.30)
[2020-06-13 14:45] LABS: Alanine Aminotransfer (ALT/SGP 25 U/L (12-78); Albumin, Blood 3.7 g/dL (3.4-5.0); Albumin/Globulin Ratio 0.9 (0.8-1.8); Alk Phos 235 U/L (50-136); Anion Gap 8 mmol/L (6-16); Aspartate Aminotrans (AST/SGOT 58 U/L (12-37); Bilirubin, Total 0.4 mg/dL (0.1-1.0); Blood Urea Nitrogen 14 mg/dL (8-24); Bun/Creatinine Ratio 16.1 (12.0-20.0); CO2, Blood 24 mmol/L (21-32); Calcium, Blood 9.8 mg/dL (8.5-10.1); Chloride, Blood 105 mmol/L (98-108); Creatinine, Blood 0.87 mg/dL (0.60-1.20); Glomerular Filtration Rate >60 (60-); Glucose, Blood 120 mg/dL (70-99); Potassium, Blood 3.8 mmol/L (3.5-5.5); Sodium, Blood 137 mmol/L (136-145); Total Protein, Blood 7.7 g/dL (6.4-8.2)
--- NOTE | 2020-06-13 19:41 | NUR ---
1900 PT ADMITTED TO ROOM 343 PER CART FROM ER; ALERT AND ORIENTED X 4; C/O ABD PAIN 8/10; NPO.
--- NOTE | 2020-06-14 05:05 | NUR ---
SHIFT SUMMARY: 44 Y/O MALE HAD RESTLESS NIGHT ALL SHIFT WITH C/O ABD PAIN RATED 9/10 WITH DILAUDID 1MG IVP GIVEN EVERY 2 HOURS WITH MODERATE PAIN RELIEF FELT; PT ALERT AND ORIENTED X 4; DENIES NAUSEA; BED LOW POSITION WITH CALL LIGHT AT SIDE.
[2020-06-14 05:27] LABS: BASOPHILS ABSOLUTE AUTO 0.06 K/mm3 (0.00-0.23); BASOPHILS PERCENT AUTO 1 % (0-2); EOSINOPHILS ABSOLUTE AUTO 0.29 K/mm3 (0.00-0.68); EOSINOPHILS PERCENT AUTO 5 % (0-6); Hematocrit 27.8 % (37.0-53.0); Hemoglobin 7.7 g/dL (13.5-17.5); IMMATURE GRAN ABSOLUTE AUTO 0.02 K/mm3 (0.00-0.10); IMMATURE GRAN PERCENT AUTO 0 % (0-1); LYMPHOCYTES ABSOLUTE AUTO 1.96 K/mm3 (0.84-5.20); LYMPHOCYTES PERCENT AUTO 36 % (21-46); MONOCYTES ABSOLUTE AUTO 0.54 K/mm3 (0.16-1.47); MONOCYTES PERCENT AUTO 10 % (4-13); Mean Corpuscular HGB 22.9 pg (26.0-34.0); Mean Corpuscular HGB Conc 27.7 g/dL (31.5-36.5); Mean Corpuscular Volume 83 fL (80-100); Mean Platelet Volume 9.5 fL (9.1-12.4); NEUTROPHILS ABSOLUTE AUTO 2.64 K/mm3 (1.96-9.15); NEUTROPHILS PERCENT AUTO 48 % (41-73); Platelet Count 465 K/mm3 (150-400); RDW Coefficient Variation 21.6 % (11.7-14.2); RDW Standard Deviation 64.4 fL (35.1-46.3); Red Blood Cell Count 3.36 M/mm3 (4.30-5.90); White Blood Cell Count 5.51 K/mm3 (4.00-11.30)
[2020-06-14 05:54] LABS: Percent Saturation 5.2 % (20.0-50.0)
[2020-06-14 05:59] LABS: Alanine Aminotransfer (ALT/SGP 28 U/L (12-78); Albumin, Blood 3.4 g/dL (3.4-5.0); Alk Phos 188 U/L (50-136); Amylase, Blood 117 U/L (25-115); Anion Gap 5 mmol/L (6-16); Aspartate Aminotrans (AST/SGOT 33 U/L (12-37); Bilirubin, Total 0.3 mg/dL (0.1-1.0); Blood Urea Nitrogen 11 mg/dL (8-24); Bun/Creatinine Ratio 12.9 (12.0-20.0); CO2, Blood 27 mmol/L (21-32); Calcium, Blood 8.3 mg/dL (8.5-10.1); Chloride, Blood 107 mmol/L (98-108); Creatinine, Blood 0.86 mg/dL (0.60-1.20); Globulin, Blood 3.3 g/dL (2.2-4.0); Glomerular Filtration Rate >60 (60-); Glucose, Blood 92 mg/dL (70-99); Potassium, Blood 3.7 mmol/L (3.5-5.5); Sodium, Blood 139 mmol/L (136-145); Total Protein, Blood 6.7 g/dL (6.4-8.2)
--- NOTE | 2020-06-14 18:50 | NUR ---
SHIFT SUMMARY NO ACUTE CHANGES, A&OX4, PLEASANT AND COOPERATIVE T/O SHIFT. PT HAS BEEN RECIEVING DILAUDID Q2H FOR CHRONIC PAIN OF THE ABD R/T PANCREATITIS. IRON VIA IV ADMINISTERED TODAY WELL. [place] APPROVED PT TO BE ON A CLEAR LIQUID DIET, PT HAS BEEN TOLERATING THE DIET WELL.
--- NOTE | 2020-06-14 23:29 | NUR ---
PT CONTINUES C/O ABD PAIN RATED 8/10 WITH DILAUDID 1MG IVP GIVEN; PT VOICED HE TAKES ALOT OF MARIJUANA AT HOME FOR PAIN CONTROL AT TIMES AND IS ATTEMPTING TO GET RX FOR SOME NARCOTICS.
--- NOTE | 2020-06-15 04:07 | NUR ---
SHIFT SUMMARY: 54 Y/O MALE WAS AWAKE ALL SHIFT; PT VOICED THAT HE RARELY SLEEPS MORE THAN 1 HOUR AT TIME; PT RATED ABD PAIN 8/10 WITH DILAUDID 1MG IVP GIVEN EVERY 2 HOURS ORDERD WITH MODERATE RELIEF VOICED; UP PER SELF; DENIES NAUSEA; VOIDING CLEAR YELLOW FLUID; TOLERATING CLEAR LIQUID DIET (HOT TEA THIS SHIFT); ALERT AND ORIENTED X 4; BED LOW POSITION WITH CALL LIGHT AT SIDE.
[2020-06-15 05:34] LABS: Hematocrit 25.9 % (37.0-53.0); Hemoglobin 7.1 g/dL (13.5-17.5); Mean Corpuscular HGB Conc 27.4 g/dL (31.5-36.5); Mean Corpuscular Volume 84 fL (80-100); Mean Platelet Volume 9.5 fL (9.1-12.4); Platelet Count 407 K/mm3 (150-400); RDW Coefficient Variation 21.5 % (11.7-14.2); RDW Standard Deviation 65.6 fL (35.1-46.3); Red Blood Cell Count 3.09 M/mm3 (4.30-5.90); White Blood Cell Count 4.62 K/mm3 (4.00-11.30)
[2020-06-15 05:55] LABS: Anion Gap 4 mmol/L (6-16); Blood Urea Nitrogen 6 mg/dL (8-24); Bun/Creatinine Ratio 7.7 (12.0-20.0); CO2, Blood 26 mmol/L (21-32); Calcium, Blood 8.1 mg/dL (8.5-10.1); Chloride, Blood 107 mmol/L (98-108); Creatinine, Blood 0.78 mg/dL (0.60-1.20); Glomerular Filtration Rate >60 (60-); Glucose, Blood 90 mg/dL (70-99); Sodium, Blood 137 mmol/L (136-145)
--- NOTE | 2020-06-15 17:14 | NUR ---
SHIFT SUMMARY NO ACUTE CHANGES T/O SHIFT. A&OX4, PT UP PER SELF TO BATHROOM, CALLS APPROPRIATELY. DILAUDID IV Q2H THIS SHIFT FOR ABD PAIN RATED AN 8/10 MOST OF THE TIME. HOSPITALIST ORDERED DILAUDID PO Q4H TODAY BECAUSE PT TALKED ABOUT GETTING OFF THE IV PAIN MEDS AND ON ORAL SO HE CAN BETTER CONTROL HIS PAIN AT HOME. DISCUSSED WITH PT AND HE SAID HE WOULD LIKE TO START USING THE PO DILAUDID TONIGHT. RAW HIDE TRIMMER NURSE WILL BE NOTIFIED. PT ALSO PROGRESSED TO A SOFT DIET TODAY.
--- NOTE | 2020-06-16 02:58 | NUR ---
SHIFT SUMMARY AWAKE AT INTERVALS, APPROX EVERY 2 HRS, THIS SHIFT WITH REQUESTS FOR PAIN MEDS FOR PANCREATITIS. IVF OF LR INFUSING AT 125 ML/HR. CALL LIGHT IN REACH.
[2020-06-16 05:24] LABS: Hematocrit 25.4 % (37.0-53.0); Hemoglobin 6.9 g/dL (13.5-17.5); Mean Corpuscular HGB 23.1 pg (26.0-34.0); Mean Corpuscular HGB Conc 27.2 g/dL (31.5-36.5); Mean Corpuscular Volume 85 fL (80-100); Mean Platelet Volume 9.3 fL (9.1-12.4); Platelet Count 388 K/mm3 (150-400); RDW Coefficient Variation 21.5 % (11.7-14.2); RDW Standard Deviation 66.8 fL (35.1-46.3); Red Blood Cell Count 2.99 M/mm3 (4.30-5.90); White Blood Cell Count 5.06 K/mm3 (4.00-11.30)
[2020-06-16 05:46] LABS: Anion Gap 7 mmol/L (6-16); Blood Urea Nitrogen 5 mg/dL (8-24); Bun/Creatinine Ratio 6.4 (12.0-20.0); CO2, Blood 24 mmol/L (21-32); Calcium, Blood 8.4 mg/dL (8.5-10.1); Chloride, Blood 107 mmol/L (98-108); Creatinine, Blood 0.78 mg/dL (0.60-1.20); Glomerular Filtration Rate >60 (60-); Glucose, Blood 94 mg/dL (70-99); Potassium, Blood 3.6 mmol/L (3.5-5.5); Sodium, Blood 138 mmol/L (136-145)
--- NOTE | 2020-06-16 17:14 | NUR ---
SHIFT SUMMARY. A&OX4, INDEPENDENT IN ROOM. PT DENIES SOB, N/V. PT CONTINUES WITH CONSTANT ABD PAIN, PT REQUESTS IV PAIN MEDICATION EVERY TWO HOURS. 1 UNIT PRBC INFUSED WITHOUT ISSUE. PT ONLY TOLERATING SMALL AMOUNTS OF FOOD, TOLERATING LIQUIDS. NO OTHER CHANGES OR CONCERNS.
--- NOTE | 2020-06-17 03:22 | NUR ---
SHIFT SUMMARY HAS BEEN AWAKE AND REQUESTING PAIN MEDS FOR ABD PAIN ABOUT EVERY 2 HRS. WHEN ASKED IF THE DILAUDID WORKED, HE SAID YES IT DROPPED THE PAIN TO ABOUT A 6, DEPENDING ON HOW SEVERE IT WAS BEFORE HE RECEIVED THE MED. IVF OF LR INFUSING, TOLERATING LIQUIDS WELL - TEA AND ICE CHIPS ABOUT EVERY 2 HRS WELL. CALL LIGHT IN REACH.
[2020-06-17] MEDS ORDERED: HYDMOR4 PO (10:09)
--- NOTE | 2020-06-17 11:31 | NUR ---
1110 PT DISCHARGED HOME VIA PERSONAL VEHICLE, DRIVEN BY FAMILY. ESCORTED TO ENTRANCE VIA W/C BY THIS RN. POWERGLIDE REMOVED. D/C PAPERWORK REVIEWED WITH PT AND COPY PROVIDED. PT CONTINUES WITH ABD PAIN , HARD SCRIPT FOR DILAUDID WITH PT. NO N/V, SOB. TOLERATING FLUIDS AND SMALL AMOUNTS OF FOOD. NO NEW CHANGES OR CONCERNS.
--- NOTE | 2020-06-17 15:30 | NUR ---
Late entry. Patient is in DC process. Patient tells me about his current medical issues, his history of disease and the strong steps he has made toward living better. Patient tells me personal information. I listen empathically. provide companionship and normalize patient's struggle and experience.
== END 2020-06-17 11:13 | disposition home or self-care (01) | DRG 439 ==
LOC: ER 12:57 → MEDS 19:06
PROVIDERS: Emergency Medicine; ADMIT Internal Medicine
PROC: 30233N1 Transfusion of Nonautologous Red Blood Cells into Peripheral Vein, Percutaneous Approach (ICD-10-PCS; principal; 2020-06-15)
DX: K85.20 Alcohol induced acute pancreatitis without necrosis or infection (principal); F11.20 Opioid dependence, uncomplicated; K86.0 Alcohol-induced chronic pancreatitis; F10.10 Alcohol abuse, uncomplicated; D50.9 Iron deficiency anemia, unspecified; G89.4 Chronic pain syndrome; Z86.718 Personal history of other venous thrombosis and embolism; Z87.891 Personal history of nicotine dependence; J43.9 Emphysema, unspecified; I73.1 Thromboangiitis obliterans [Buerger's disease]; M06.9 Rheumatoid arthritis, unspecified; Z76.5 Malingerer [conscious simulation]; Z79.01 Long term (current) use of anticoagulants
CPT/HCPCS: 36415; 76705; 80048; 80053; 82150; 82728; 83540; 83550; 83690; 85025; 85027; 86850; 86900; 86901; 86923; 96361; 96374; 96375; 96376; 99285-25; C1751; J1170; J2405; J2916; J3010; J7030; J7050; J7120; P9016

== ENCOUNTER 2020-10-15 19:50 | Inpatient (IN) | payer OTHER ==
[~2020-10-15] VITALS: Ht 193 cm; Wt 79.8 kg
[~2020-10-15 19:50] MED LIST changes: +HYDMOR4 PO
[2020-10-15 20:48] LABS: Ethanol (Alcohol), Blood, Med <3 mg/dL; Troponin I <0.015 ng/mL (0.000-0.040)
[2020-10-15 20:57] LABS: BASOPHILS ABSOLUTE AUTO 0.08 K/mm3 (0.00-0.23); BASOPHILS PERCENT AUTO 1 % (0-2); EOSINOPHILS ABSOLUTE AUTO 0.02 K/mm3 (0.00-0.68); EOSINOPHILS PERCENT AUTO 0 % (0-6); Hematocrit 41.3 % (37.0-53.0); Hemoglobin 12.8 g/dL (13.5-17.5); IMMATURE GRAN ABSOLUTE AUTO 0.04 K/mm3 (0.00-0.10); IMMATURE GRAN PERCENT AUTO 0 % (0-1); LYMPHOCYTES ABSOLUTE AUTO 1.43 K/mm3 (0.84-5.20); LYMPHOCYTES PERCENT AUTO 16 % (21-46); MONOCYTES ABSOLUTE AUTO 0.62 K/mm3 (0.16-1.47); MONOCYTES PERCENT AUTO 7 % (4-13); Mean Corpuscular Volume 84 fL (80-100); Mean Platelet Volume 10.2 fL (9.1-12.4); NEUTROPHILS ABSOLUTE AUTO 6.71 K/mm3 (1.96-9.15); NEUTROPHILS PERCENT AUTO 75 % (41-73); Platelet Count 335 K/mm3 (150-400); RDW Coefficient Variation 27.2 % (11.7-14.2); RDW Standard Deviation 81.2 fL (35.1-46.3); Red Blood Cell Count 4.93 M/mm3 (4.30-5.90)
[2020-10-15 21:00] LABS: Alanine Aminotransfer (ALT/SGP 25 U/L (12-78); Albumin, Blood 3.1 g/dL (3.4-5.0); Albumin/Globulin Ratio 0.7 (0.8-1.8); Alk Phos 71 U/L (50-136); Anion Gap 8 mmol/L (6-16); Aspartate Aminotrans (AST/SGOT 64 U/L (12-37); Bilirubin, Total 0.3 mg/dL (0.1-1.0); Blood Urea Nitrogen 7 mg/dL (8-24); Bun/Creatinine Ratio 8.7 (12.0-20.0); CO2, Blood 22 mmol/L (21-32); Chloride, Blood 106 mmol/L (98-108); Creatinine, Blood 0.81 mg/dL (0.60-1.20); Globulin, Blood 4.5 g/dL (2.2-4.0); Glomerular Filtration Rate >60 (60-); Glucose, Blood 103 mg/dL (70-99); Potassium, Blood 4.8 mmol/L (3.5-5.5); Sodium, Blood 136 mmol/L (136-145); Total Protein, Blood 7.6 g/dL (6.4-8.2)
--- NOTE | 2020-10-16 03:05 | NUR ---
CALLED HOSPITALIST INFORMED HIM THAT PT STATES HIS PAIN IS 10/10. PT APPEARS EXTREMELY UNCOMFORTABLE. NEW ORDERS IN EMAR
--- NOTE | 2020-10-16 03:22 | NUR ---
ADMIT NOTE ADMITTED FROM ER THIS SHIFT FOR PANCREATITIS. HANDOFF RECEIVED FROM ER NURSE CINDY MCCORMICK. PT TRANSFERED TO FLOOR VIA WHEELCHAIR. PERSONAL POSSESSIONS WITH PT. PT ORIENTED TO UNIT. CALL BUTTON WITHIN REACH
[2020-10-16 05:19] LABS: BASOPHILS ABSOLUTE AUTO 0.09 K/mm3 (0.00-0.23); BASOPHILS PERCENT AUTO 1 % (0-2); EOSINOPHILS ABSOLUTE AUTO 0.29 K/mm3 (0.00-0.68); EOSINOPHILS PERCENT AUTO 4 % (0-6); Hematocrit 39.8 % (37.0-53.0); IMMATURE GRAN ABSOLUTE AUTO 0.02 K/mm3 (0.00-0.10); IMMATURE GRAN PERCENT AUTO 0 % (0-1); LYMPHOCYTES ABSOLUTE AUTO 1.95 K/mm3 (0.84-5.20); LYMPHOCYTES PERCENT AUTO 24 % (21-46); MONOCYTES ABSOLUTE AUTO 1.18 K/mm3 (0.16-1.47); MONOCYTES PERCENT AUTO 14 % (4-13); Mean Corpuscular HGB 26.3 pg (26.0-34.0); Mean Corpuscular HGB Conc 30.2 g/dL (31.5-36.5); Mean Corpuscular Volume 87 fL (80-100); Mean Platelet Volume 9.8 fL (9.1-12.4); NEUTROPHILS ABSOLUTE AUTO 4.71 K/mm3 (1.96-9.15); NEUTROPHILS PERCENT AUTO 57 % (41-73); Platelet Count 327 K/mm3 (150-400); RDW Coefficient Variation 26.8 % (11.7-14.2); RDW Standard Deviation 82.8 fL (35.1-46.3); Red Blood Cell Count 4.56 M/mm3 (4.30-5.90); White Blood Cell Count 8.24 K/mm3 (4.00-11.30)
[2020-10-16 05:49] LABS: Alanine Aminotransfer (ALT/SGP 17 U/L (12-78); Albumin/Globulin Ratio 0.8 (0.8-1.8); Alk Phos 68 U/L (50-136); Anion Gap 9 mmol/L (6-16); Aspartate Aminotrans (AST/SGOT 22 U/L (12-37); Bilirubin, Total 0.3 mg/dL (0.1-1.0); Blood Urea Nitrogen 7 mg/dL (8-24); Bun/Creatinine Ratio 8.1 (12.0-20.0); CO2, Blood 23 mmol/L (21-32); Calcium, Blood 8.2 mg/dL (8.5-10.1); Chloride, Blood 109 mmol/L (98-108); Creatinine, Blood 0.87 mg/dL (0.60-1.20); Glomerular Filtration Rate >60 (60-); Glucose, Blood 94 mg/dL (70-99); Potassium, Blood 3.5 mmol/L (3.5-5.5); Sodium, Blood 141 mmol/L (136-145)
[2020-10-16 05:53] LABS: Cholesterol 142 mg/dL (50-200); HDL Cholesterol 47 mg/dL (>39); LDL/HDL RATIO 1.4; Low Density Lipoprotein Chol 66 mg/dL (0-110); Triglycerides 146 mg/dL (30-160); Very Low Density Lipoprot Chol 29 mg/dL (6-32)
--- NOTE | 2020-10-16 06:16 | NUR ---
PAIN CONTROL PT STATED HE HAD 9 - 9 1/2 RATING OF PAIN ON THE PAIN SCALE. THIS TIME I DID ADMINISTER A LESSER DOSE OF 1 MG DILAUDID.
--- NOTE | 2020-10-16 19:31 | NUR ---
a+o, very cooperative, gave him his medication when scheduled and he did not ask for more, pain stayed above acceptable level but no request was made for pain medication, asked dr for tums, call light in reach, saline locked, rm air, bed in low position, no acute changes noted during shift, bsr shared with noc nurse and pt
--- NOTE | 2020-10-17 07:48 | NUR ---
SHIFT SUMMARY A/O, ABLE TO MAKE NEEDS KNOWN. COOPERATIVE WITH CARE. CALLS AND ANSWERS QUESTIONS APPROPRIATELY. C/O PAIN/DISCOMFORT TO ABDOMEN RATED 8-9/10; MEDICATED PER EMAR. TOLERATING ICE CHIPS. CONCERNED THAT HE IS NOT STAYING HYDRATED. REMAINS WITH BOWEL REST. DID NOT APPEAR TO REST MUCH OVERNIGHT. INDEPENDENT IN ROOM. BED IN LOWEST POSITION. CALL LIGHT AND BELONGINGS WITHIN REACH. CONTINUE WITH CURRENT PLAN OF CARE. REPORT GIVEN TO ONCOMING RN.
--- NOTE | 2020-10-17 19:40 | NUR ---
a+o, iv medication for pain kept pain in check but not down to an acceptable level, 9 to 7 was his pain level acceptable is 4-5, cooperative with care, able to self transfer, rm air, saline locked, explained reason for no fluid infusion, bed in low position, call light in reach, bsr shared with noc nurse
--- NOTE | 2020-10-17 19:43 | NUR ---
dr was made aware of rash on head and face, pointed out that it was on most of the body
--- NOTE | 2020-10-18 04:05 | NUR ---
SHIFT SUMMARY PT AOX4. NO ACUTE CHANGES. REPORTS ABD PAIN, MEDICATE WITH DILAUDID Q3. PT HAS ALSO BEEN TAKING HIS TUMS. HE IS WELL HYDRATED WELL BY PO. TOLERATING CLEAR DIET, DENIES NAUSEA AND VOMITING. PT STS HE FEELS BETTER TODAY. VSS BUT MILD ELEV BP. SALINE LOCKED. POWERGLIDE PATENT ON ARTHUR. HE IS INDEPENDENT IN ROOM. BED IN LOW POSITION. CALL LIGHT WITHIN REACH.
[2020-10-18] MEDS ORDERED: TUMS500 MG PO (11:14)
[2020-10-18] MEDS ORDERED: DOCU100 PO (11:14)
[2020-10-18] MEDS ORDERED: HYDMOR4 PO (11:15)
[2020-10-18] MEDS ORDERED: SENN187 PO (11:16)
[2020-10-18] MEDS ORDERED: ONDA4ODT MM (11:18)
--- NOTE | 2020-10-18 12:21 | NUR ---
DISCHARGE NOTE PT IS AOX4. PT POWERGLIDE REMOVED FROM ARTHUR BY THIS RN. PT DRESSED SELF IN HOME CLOTHING. MEDICATIONS FAXED TO PHARMACY AND HARD SCRIPT GIVEN TO PT AND PLACED IN DC FOLDER. THIS RN REVIEWED DC INSTRUCTIONS AND MEDICATIONS WITH PT WHO VERBALIZED AN UNDERSTANDING. PT BELONGINGS PLACED IN BELONGINGS BAG. PT WHEELED OFF UNIT BY THIS RN AT 1215 AND PT HAD BELONGINGS AND DC INSTRUCTIONS UPON DC.
== END 2020-10-18 12:10 | disposition home or self-care (01) | DRG 440 ==
LOC: ER 19:50 → MEDS 10-16 00:58
PROVIDERS: Emergency Medicine; ADMIT Internal Medicine
DX: K85.90 Acute pancreatitis without necrosis or infection, unspecified (principal); K86.1 Other chronic pancreatitis; Z86.718 Personal history of other venous thrombosis and embolism; Z89.029 Acquired absence of unspecified finger(s); J44.9 Chronic obstructive pulmonary disease, unspecified; Z87.891 Personal history of nicotine dependence; F10.21 Alcohol dependence, in remission; Z76.5 Malingerer [conscious simulation]; Z79.01 Long term (current) use of anticoagulants; G89.4 Chronic pain syndrome
CPT/HCPCS: 36415; 76705; 80053; 80061; 83690; 84484; 85025; 93005; 93010; 96361; 96374; 96375; 96376; 99285-25; A9270; C1751; G0378; G0480; J1170; J2405; J3010; J7030

== ENCOUNTER 2020-10-23 11:07 | Inpatient (IN) | payer OTHER ==
[~2020-10-23] VITALS: Ht 193 cm; Wt 78.5 kg
[~2020-10-23 11:07] MED LIST changes: +ONDA4ODT MM; +TUMS500 MG PO
[2020-10-23 11:23] LABS: BASOPHILS ABSOLUTE AUTO 0.04 K/mm3 (0.00-0.23); BASOPHILS PERCENT AUTO 0 % (0-2); EOSINOPHILS ABSOLUTE AUTO 0.02 K/mm3 (0.00-0.68); EOSINOPHILS PERCENT AUTO 0 % (0-6); Hematocrit 38.7 % (37.0-53.0); Hemoglobin 12.3 g/dL (13.5-17.5); IMMATURE GRAN ABSOLUTE AUTO 0.06 K/mm3 (0.00-0.10); IMMATURE GRAN PERCENT AUTO 0 % (0-1); LYMPHOCYTES ABSOLUTE AUTO 1.46 K/mm3 (0.84-5.20); LYMPHOCYTES PERCENT AUTO 9 % (21-46); MONOCYTES ABSOLUTE AUTO 1.44 K/mm3 (0.16-1.47); MONOCYTES PERCENT AUTO 9 % (4-13); Mean Corpuscular HGB 26.3 pg (26.0-34.0); Mean Corpuscular HGB Conc 31.8 g/dL (31.5-36.5); Mean Corpuscular Volume 83 fL (80-100); Mean Platelet Volume 9.9 fL (9.1-12.4); NEUTROPHILS ABSOLUTE AUTO 13.13 K/mm3 (1.96-9.15); NEUTROPHILS PERCENT AUTO 81 % (41-73); Platelet Count 423 K/mm3 (150-400); RDW Coefficient Variation 26.9 % (11.7-14.2); RDW Standard Deviation 79.6 fL (35.1-46.3); Red Blood Cell Count 4.67 M/mm3 (4.30-5.90); White Blood Cell Count 16.15 K/mm3 (4.00-11.30)
[2020-10-23 11:44] LABS: Alanine Aminotransfer (ALT/SGP 16 U/L (12-78); Albumin/Globulin Ratio 0.7 (0.8-1.8); Alk Phos 70 U/L (50-136); Anion Gap 9 mmol/L (6-16); Aspartate Aminotrans (AST/SGOT 21 U/L (12-37); Bilirubin, Total 0.5 mg/dL (0.1-1.0); Blood Urea Nitrogen 6 mg/dL (8-24); Bun/Creatinine Ratio 6.7 (12.0-20.0); CO2, Blood 22 mmol/L (21-32); Calcium, Blood 8.9 mg/dL (8.5-10.1); Chloride, Blood 104 mmol/L (98-108); Globulin, Blood 4.5 g/dL (2.2-4.0); Glomerular Filtration Rate >60 (60-); Glucose, Blood 116 mg/dL (70-99); Lactate Dehydrogenase (Ld),Bld 200 U/L (100-240); Potassium, Blood 3.6 mmol/L (3.5-5.5); Sodium, Blood 135 mmol/L (136-145); Total Protein, Blood 7.5 g/dL (6.4-8.2)
--- NOTE | 2020-10-23 14:49 | NUR ---
ER ADMIT- PT ARRIVED TO ROOM 354 VIA W/C. PT INDEP INTO BED. PT REPORTS 10/10 EPIGASTRIC PAIN. PT DENIES ANY NAUSEA AT THIS TIME OR OTHER COMPLAINTS. LS CLEAR, ON RA. PT DOES REPORT SOME SOB ONLY DUE TO PAIN. STATES LAST TIME HE WAS AT THE HOSPIRAL HE WAS GETTING 2MG OF DILAUDID AND STATES 1MG IS NOT SUFFICIENT. PT REQUESTING DR TO BE NOTIFIED. SPOKE WITH CHRISTINA ALMONTE WHO REPORTS HE WILL ADJUST DILAUDID TO 1MG Q1H, FIRST DOSE NOW BUT DID NOT FEEL COMFORTABLE INCREASING TO 2MG. OK FOR ICE CHIPS. PT WITH BUERGERS DISEASE AND MISSING MULTIPLE FINGERS ON BILATERAL HANDS. ABD TENDER, STATES HAS NOT EATEN FOR 3 DAYS DUE TO THE PAIN. PT ORIENTED TO ROOM AND CALL SYSTEM, CALL LIGHT IN REACH.
--- NOTE | 2020-10-23 17:15 | NUR ---
SHIFT SUMMARY- ER ADMIT THIS AFTERNOON, PT CONTINUOUSLY REPORTS 10/10 ABD PAIN AND REPORTS 1MG OF DILAUDID DOES NOT HELP EVEN WITH INCREASED FREQUENCY, PT REPORTS 2MG HAS HELPED IN THE PAST. PT HOWEVER TOLERATING ICE CHIPS. PT INDEP IN ROOM. LS CLEAR, ON RA. NO OTHER ACUTE CHANGES SINCE ARRIVAL TO FLOOR.
--- NOTE | 2020-10-23 18:50 | NUR ---
PT CALLING EVERY HOUR FOR DILAUDID, CONTINUES TO REPORT IT IS NOT ENOUGH. PT TOLERARING ICE CHIPS. DOES NOT APPEAR IN DISTRESS BUT DOES GAURD HIS ABDOMEN SITTING UP IN BED. SPOKE WITH DR FLORES REGARDING EVERY HOUR DILAUDID, PER DR FLORES CHANGE TO 1-2 EVERY 4 HOURS NEEDED AND GIVE 60MG IM TORADOL X1.
--- NOTE | 2020-10-23 19:30 | NUR ---
AWAKE. TALKATIVE. STATED WAS STILL IN PAIN, WILL CHECK MAR FOR FURTHER MEDICATION - SEE MAR FOR DETAILS. CALL LIGHT IN REACH
[2020-10-24 05:49] LABS: BASOPHILS ABSOLUTE AUTO 0.05 K/mm3 (0.00-0.23); BASOPHILS PERCENT AUTO 0 % (0-2); EOSINOPHILS ABSOLUTE AUTO 0.07 K/mm3 (0.00-0.68); EOSINOPHILS PERCENT AUTO 1 % (0-6); Hematocrit 39.2 % (37.0-53.0); Hemoglobin 11.9 g/dL (13.5-17.5); IMMATURE GRAN ABSOLUTE AUTO 0.08 K/mm3 (0.00-0.10); IMMATURE GRAN PERCENT AUTO 1 % (0-1); LYMPHOCYTES ABSOLUTE AUTO 1.06 K/mm3 (0.84-5.20); LYMPHOCYTES PERCENT AUTO 8 % (21-46); MONOCYTES ABSOLUTE AUTO 1.59 K/mm3 (0.16-1.47); MONOCYTES PERCENT AUTO 11 % (4-13); Mean Corpuscular HGB 26.3 pg (26.0-34.0); Mean Corpuscular HGB Conc 30.4 g/dL (31.5-36.5); Mean Corpuscular Volume 87 fL (80-100); Mean Platelet Volume 10.6 fL (9.1-12.4); NEUTROPHILS ABSOLUTE AUTO 11.35 K/mm3 (1.96-9.15); NEUTROPHILS PERCENT AUTO 80 % (41-73); Platelet Count 333 K/mm3 (150-400); RDW Coefficient Variation 26.5 % (11.7-14.2); RDW Standard Deviation 81.5 fL (35.1-46.3); Red Blood Cell Count 4.52 M/mm3 (4.30-5.90)
[2020-10-24 05:52] LABS: Alanine Aminotransfer (ALT/SGP 14 U/L (12-78); Albumin, Blood 2.7 g/dL (3.4-5.0); Albumin/Globulin Ratio 0.7 (0.8-1.8); Alk Phos 60 U/L (50-136); Anion Gap 7 mmol/L (6-16); Aspartate Aminotrans (AST/SGOT 10 U/L (12-37); Bilirubin, Total 0.7 mg/dL (0.1-1.0); Blood Urea Nitrogen 7 mg/dL (8-24); Bun/Creatinine Ratio 9.2 (12.0-20.0); CO2, Blood 24 mmol/L (21-32); Calcium, Blood 8.6 mg/dL (8.5-10.1); Chloride, Blood 106 mmol/L (98-108); Creatinine, Blood 0.76 mg/dL (0.60-1.20); Globulin, Blood 3.9 g/dL (2.2-4.0); Glomerular Filtration Rate >60 (60-); Glucose, Blood 82 mg/dL (70-99); Potassium, Blood 3.7 mmol/L (3.5-5.5); Sodium, Blood 137 mmol/L (136-145); Total Protein, Blood 6.6 g/dL (6.4-8.2)
--- NOTE | 2020-10-24 06:25 | NUR ---
SHIFT SUMMARY ABD PAIN QUITE SEVERE PER PTSTATEMENTS. DISTRICT AGENT WAS NOTIFIED AND PAIN MED SCHEDULE CHANGED TO DILAUDID 1 TO 2 MG IV Q 2 HRS PRN. MEDICATIONS EFFECTIVE - SEE MAR FOR DETAILS. CALL LIGHT IN REACH. IVF OF LR INFUSING AT 150 ML/HR. TOLERATING SIPS H2O AND ICE CHIPS OTHERWISE NPO.
--- NOTE | 2020-10-24 17:50 | NUR ---
SHIFT SUMMARY PT AOX4; CALLS APPROPRIATELY. PT VERY PAINFUL TO ABD MAINTAINS ABOUT 9/10. PT RECEIVED DILAUDID Q2 1MG PRN. PT IS RECEIVING FLUIDS LR @150ML/HR. PT INDEPENDENT IN THE ROOM. PT STATED HE QUIT DRINKING 3 YEARS AGO. PT IS A VERY PLEASANT PT AND CALM. BED IS IN THE LOWEST POSITION AND CALL LIGHT WITHIN REACH.
--- NOTE | 2020-10-24 21:44 | NUR ---
2000 PT RESTING COMFORTABLY IN BED; CHEERFUL.
--- NOTE | 2020-10-25 04:16 | NUR ---
SHIFT SUMMARY: 54 Y/O MALE SLEPT MINIMALLY ALL SHIFT WITH PATIENT REQUESTING PAIN MEDS Q2H ALMOST ON THE CLOCK WITH ABD PAIN RATED 8/10 AND DILAUDID 1MG IVP GIVEN WITH ADEQUATE PAIN RELIEF VOICED; DENIES NAUSEA; VOIDING URINE WITHOUT ISSUE; ALERT AND ORIENTED X 4; BOWEL SOUNDS HYPOACTIVE WITH TENDERNESS RLQ NOTED; BED LOW POSITION WITH CALL LIGHT AT SIDE.
[2020-10-25 05:24] LABS: BASOPHILS ABSOLUTE AUTO 0.07 K/mm3 (0.00-0.23); BASOPHILS PERCENT AUTO 1 % (0-2); EOSINOPHILS ABSOLUTE AUTO 0.22 K/mm3 (0.00-0.68); EOSINOPHILS PERCENT AUTO 2 % (0-6); Hematocrit 39.4 % (37.0-53.0); Hemoglobin 11.8 g/dL (13.5-17.5); IMMATURE GRAN ABSOLUTE AUTO 0.04 K/mm3 (0.00-0.10); IMMATURE GRAN PERCENT AUTO 0 % (0-1); LYMPHOCYTES ABSOLUTE AUTO 1.69 K/mm3 (0.84-5.20); LYMPHOCYTES PERCENT AUTO 18 % (21-46); MONOCYTES PERCENT AUTO 15 % (4-13); Mean Corpuscular HGB 26.4 pg (26.0-34.0); Mean Corpuscular HGB Conc 29.9 g/dL (31.5-36.5); Mean Corpuscular Volume 88 fL (80-100); NEUTROPHILS ABSOLUTE AUTO 6.25 K/mm3 (1.96-9.15); NEUTROPHILS PERCENT AUTO 65 % (41-73); RDW Standard Deviation 81.3 fL (35.1-46.3); Red Blood Cell Count 4.47 M/mm3 (4.30-5.90); White Blood Cell Count 9.67 K/mm3 (4.00-11.30)
[2020-10-25 05:26] LABS: Platelet Count 246 K/mm3 (150-400)
[2020-10-25 05:34] LABS: Alanine Aminotransfer (ALT/SGP 14 U/L (12-78); Albumin, Blood 2.7 g/dL (3.4-5.0); Albumin/Globulin Ratio 0.7 (0.8-1.8); Alk Phos 61 U/L (50-136); Anion Gap 12 mmol/L (6-16); Aspartate Aminotrans (AST/SGOT 17 U/L (12-37); Bilirubin, Total 0.4 mg/dL (0.1-1.0); Blood Urea Nitrogen 6 mg/dL (8-24); Bun/Creatinine Ratio 8.6 (12.0-20.0); CO2, Blood 21 mmol/L (21-32); Calcium, Blood 8.2 mg/dL (8.5-10.1); Chloride, Blood 106 mmol/L (98-108); Globulin, Blood 3.9 g/dL (2.2-4.0); Glomerular Filtration Rate >60 (60-); Glucose, Blood 63 mg/dL (70-99); Potassium, Blood 3.9 mmol/L (3.5-5.5); Sodium, Blood 139 mmol/L (136-145); Total Protein, Blood 6.6 g/dL (6.4-8.2)
--- NOTE | 2020-10-25 18:07 | NUR ---
SHIFT SUMMARY PT MEDICATED WITH 1 MG IV DILADID APPROX Q2H. PT REQUESTING TO ADVANCE DIET THIS AM. ORDER RECIEVED FROM DR. CROOK. PT TOLERATED CLEAR & FULL LIQUID TRAYS TODAY. PT STARTED ON SOFT FOOD FOR DINNER. PT INSTRUCTED TO EAT A SMALL AMOUNT TO SEE HOW HE WOULD TOLERATE IT. IV FLUIDS DC'ED & SET TO TKO TO PRESERVE IV. PT REFUSED ROUTINE IV REPLACEMENT. VS REIVEWED. TEMP SLIGHTLY ELEVATED AT 99.7. NO OTHER ACUTE CHANGES IN ASSESSMENT AT THIS TIME. PT RESTING IN BED. CALL LIGHT IN REACH. DENIES OTHER NEEDS AT THIS TIME.
--- NOTE | 2020-10-25 23:15 | NUR ---
1999 PT CONTINUES TO C/O RLQ ABD PAIN RATED 8/10 AND REQUESTING DILAUDID WHEN ABLE TO RECEIVE NEXT.
--- NOTE | 2020-10-26 04:17 | NUR ---
SHIFT SUMMARY: 54 Y/O WAS UP ALL SHIFT AND WATCHED TV ENTIRE TIME WITH MINIMAL SLEEP NOTED; PT RATED ABD PAIN 7/10 WITH DILAUDID 1MG IVP GIVEN Q2H (PT WATCHING CLOCK) WITH RELIEF FELT; PT EATING TURKEY SANDWICH AND DRINKING HOT TEAS ALL SHIFT WITHOUT NAUSEA NOTED; ALERT AND ORIENTED X 4; BED LOW POSITION WITH CALL LIGHT AT SIDE.
[2020-10-26 04:51] LABS: BASOPHILS ABSOLUTE AUTO 0.06 K/mm3 (0.00-0.23); BASOPHILS PERCENT AUTO 1 % (0-2); EOSINOPHILS ABSOLUTE AUTO 0.25 K/mm3 (0.00-0.68); EOSINOPHILS PERCENT AUTO 4 % (0-6); Hematocrit 38.7 % (37.0-53.0); Hemoglobin 11.8 g/dL (13.5-17.5); IMMATURE GRAN ABSOLUTE AUTO 0.01 K/mm3 (0.00-0.10); IMMATURE GRAN PERCENT AUTO 0 % (0-1); LYMPHOCYTES ABSOLUTE AUTO 1.36 K/mm3 (0.84-5.20); LYMPHOCYTES PERCENT AUTO 19 % (21-46); MONOCYTES ABSOLUTE AUTO 0.84 K/mm3 (0.16-1.47); MONOCYTES PERCENT AUTO 12 % (4-13); Mean Corpuscular HGB 26.6 pg (26.0-34.0); Mean Corpuscular HGB Conc 30.5 g/dL (31.5-36.5); Mean Corpuscular Volume 87 fL (80-100); Mean Platelet Volume 10.2 fL (9.1-12.4); NEUTROPHILS ABSOLUTE AUTO 4.55 K/mm3 (1.96-9.15); NEUTROPHILS PERCENT AUTO 65 % (41-73); Platelet Count 343 K/mm3 (150-400); RDW Coefficient Variation 25.6 % (11.7-14.2); RDW Standard Deviation 79.5 fL (35.1-46.3); Red Blood Cell Count 4.43 M/mm3 (4.30-5.90); White Blood Cell Count 7.07 K/mm3 (4.00-11.30)
[2020-10-26 05:14] LABS: Alanine Aminotransfer (ALT/SGP 17 U/L (12-78); Albumin, Blood 2.7 g/dL (3.4-5.0); Albumin/Globulin Ratio 0.6 (0.8-1.8); Alk Phos 69 U/L (50-136); Amylase, Blood 142 U/L (25-115); Anion Gap 7 mmol/L (6-16); Aspartate Aminotrans (AST/SGOT 19 U/L (12-37); Bilirubin, Total 0.3 mg/dL (0.1-1.0); Blood Urea Nitrogen 5 mg/dL (8-24); Bun/Creatinine Ratio 6.9 (12.0-20.0); CO2, Blood 24 mmol/L (21-32); Calcium, Blood 8.4 mg/dL (8.5-10.1); Chloride, Blood 105 mmol/L (98-108); Creatinine, Blood 0.73 mg/dL (0.60-1.20); Globulin, Blood 4.4 g/dL (2.2-4.0); Glomerular Filtration Rate >60 (60-); Glucose, Blood 94 mg/dL (70-99); Phosphorus, Blood 1.9 mg/dL (2.5-4.9); Sodium, Blood 136 mmol/L (136-145); Total Protein, Blood 7.1 g/dL (6.4-8.2)
--- NOTE | 2020-10-26 18:04 | NUR ---
SHIFT SUMMARY PT MEDICATED FOR PAIN Q2H T/O DAY WITH 0.[address] CROOK CALLED BY [employer] OPERATOR, RHEA, ABOUT STARTING PO PAIN MEDS. AWAITING ORDERS FROM . PT IND IN ROOM. AMBULATING TO BATHROOM. PT STATING CONSISTANT 7/10 PAIN AND 6/10 WITH PAIN MEDS. PT TOLERATING SOFT DIET T/O THE DAY. DENIES NAUSEA & NO VOMITING T/O SHIFT. PT CURRENTLY RESTING IN BED. CALL LIGHT IN REACH. EATING DINNER. VS REVIEWED.
--- NOTE | 2020-10-26 20:08 | NUR ---
PT VERY QUIET AND SLIGHTLY ANGRY AND STATED, "I SMOKE MARIJUANA AND CHEW CBD'S AT HOME FOR PAIN CONTROL"; PT ALSO C/O PERSISTENT NAUSEA, PAIN AND IS VOICING THAT DILAUDID IS ONLY MEDICATION THAT WORKS; DR PENNY NOTIFIED WITH ORDERS FOR ZOFRAN 4MG ODT AND DILAUDID 1-2MG, PO Q3H, PRN, PAIN.
--- NOTE | 2020-10-27 03:48 | NUR ---
SHIFT SUMMARY: 54 Y/O SLENDER MALE RESTED COMFORTABLY ALL SHIFT AFTER GETTING PAIN MEDICATIONS SWITCHED TO DILAUDID 2MG Q3H WITH RELIEF FELT; PT DRINKING HOT TEA ALL SHIFT AND DID EAT TURKEY SANDWICH WITHOUT ISSUE; PT HOPING FOR POSSIBLE DISCHARGE HOME TODAY HE FEELS ALOT BETTER; UP AD ANA WITHOUT ISSUE; BED LOW POSITION WITH CALL LIGHT AT SIDE.
[2020-10-27 05:21] LABS: BASOPHILS ABSOLUTE AUTO 0.07 K/mm3 (0.00-0.23); BASOPHILS PERCENT AUTO 1 % (0-2); EOSINOPHILS ABSOLUTE AUTO 0.23 K/mm3 (0.00-0.68); EOSINOPHILS PERCENT AUTO 3 % (0-6); Hemoglobin 12.1 g/dL (13.5-17.5); IMMATURE GRAN ABSOLUTE AUTO 0.01 K/mm3 (0.00-0.10); IMMATURE GRAN PERCENT AUTO 0 % (0-1); LYMPHOCYTES ABSOLUTE AUTO 1.31 K/mm3 (0.84-5.20); LYMPHOCYTES PERCENT AUTO 20 % (21-46); MONOCYTES ABSOLUTE AUTO 0.58 K/mm3 (0.16-1.47); MONOCYTES PERCENT AUTO 9 % (4-13); Mean Corpuscular HGB 26.4 pg (26.0-34.0); Mean Corpuscular HGB Conc 30.3 g/dL (31.5-36.5); Mean Corpuscular Volume 87 fL (80-100); Mean Platelet Volume 10.4 fL (9.1-12.4); NEUTROPHILS ABSOLUTE AUTO 4.48 K/mm3 (1.96-9.15); NEUTROPHILS PERCENT AUTO 67 % (41-73); Platelet Count 438 K/mm3 (150-400); RDW Coefficient Variation 25.5 % (11.7-14.2); RDW Standard Deviation 79.6 fL (35.1-46.3); Red Blood Cell Count 4.59 M/mm3 (4.30-5.90); White Blood Cell Count 6.68 K/mm3 (4.00-11.30)
[2020-10-27 05:47] LABS: Alanine Aminotransfer (ALT/SGP 17 U/L (12-78); Albumin, Blood 2.9 g/dL (3.4-5.0); Albumin/Globulin Ratio 0.6 (0.8-1.8); Alk Phos 87 U/L (50-136); Amylase, Blood 167 U/L (25-115); Anion Gap 7 mmol/L (6-16); Aspartate Aminotrans (AST/SGOT 23 U/L (12-37); Bilirubin, Total 0.3 mg/dL (0.1-1.0); Blood Urea Nitrogen 4 mg/dL (8-24); Bun/Creatinine Ratio 5.6 (12.0-20.0); CO2, Blood 26 mmol/L (21-32); Calcium, Blood 8.4 mg/dL (8.5-10.1); Chloride, Blood 105 mmol/L (98-108); Creatinine, Blood 0.72 mg/dL (0.60-1.20); Globulin, Blood 4.7 g/dL (2.2-4.0); Glomerular Filtration Rate >60 (60-); Glucose, Blood 114 mg/dL (70-99); Magnesium, Blood 2.3 mg/dL (1.6-2.4); Phosphorus, Blood 2.2 mg/dL (2.5-4.9); Potassium, Blood 3.5 mmol/L (3.5-5.5); Sodium, Blood 138 mmol/L (136-145); Total Protein, Blood 7.6 g/dL (6.4-8.2)
[2020-10-27] MEDS ORDERED: Acetaminophen325 M1 PO (13:03)
[2020-10-27] MEDS ORDERED: DOCU100 PO (13:04)
[2020-10-27] MEDS ORDERED: ALBU90OI INH (13:04)
[2020-10-27] MEDS ORDERED: PANT40 PO (13:05)
[2020-10-27] MEDS ORDERED: Percocet 5-3251 EACH PO (13:05)
[2020-10-27] MEDS ORDERED: ONDA4ODT MM (13:05)
[2020-10-27] MEDS ORDERED: MIRALAX17 GM PO (13:06)
--- NOTE | 2020-10-27 14:21 | NUR ---
DISCHARGE SUMMARY PT LEFT WITH MICHELLE MITCHELL. PIV REMOVED. PAPERWORK REVIEWED. ATTEMPTED TO CALL PCP OFFICE, THEY SAID THEY ARE HAVING SCHEDULING ISSUES AND WILL CALL THE PT TO SCHEDULE. PT AWARE TO HAVE CT IN THREE MONTHS AND GET LAB WORK DONE THIS WEEKEND PRIOR TO PCP APPT. SCRIPTS FOR LABS AND PERCOCET GIVEN TO PT, COPY PUT IN CHART. PT LEFT WITH BLUE FOLDER THAT CONTAINED SCRIPTS.
== END 2020-10-27 14:06 | disposition home or self-care (01) | DRG 439 ==
LOC: ER 11:07 → MEDS 12:41 → ENPENDDIS 10-27 11:36 → MEDS 10-27 14:06
PROVIDERS: Emergency Medicine; Family Medicine; Internal Medicine; Nurse Practitioner Acute Care; ADMIT Internal Medicine
DX: K85.90 Acute pancreatitis without necrosis or infection, unspecified (principal); N02.8 Recurrent and persistent hematuria with other morphologic changes; K86.0 Alcohol-induced chronic pancreatitis; D50.9 Iron deficiency anemia, unspecified; G89.4 Chronic pain syndrome; J44.9 Chronic obstructive pulmonary disease, unspecified; Z87.891 Personal history of nicotine dependence; Z86.718 Personal history of other venous thrombosis and embolism; Z20.822 Contact with and (suspected) exposure to COVID-19; K59.03 Drug induced constipation
CPT/HCPCS: 36415; 74160; 80053; 82150; 83615; 83690; 83735; 84100; 85025; 94760; 96361; 96374; 96375; 99285-25; A9270; J1170; J1885; J2405; J7030; J7050; J7060; J7120; Q9967

== ENCOUNTER 2020-11-03 15:41 | Inpatient (IN) | payer OTHER ==
[~2020-11-03] VITALS: Ht 193 cm; Wt 77.3 kg
[~2020-11-03 15:41] MED LIST changes: +ALBU90OI INH; +Acetaminophen325 M1 PO; +Percocet 5-3251 EACH PO
[2020-11-03 16:33] LABS: BASOPHILS ABSOLUTE AUTO 0.06 K/mm3 (0.00-0.23); BASOPHILS PERCENT AUTO 1 % (0-2); EOSINOPHILS ABSOLUTE AUTO 0.14 K/mm3 (0.00-0.68); EOSINOPHILS PERCENT AUTO 1 % (0-6); Hematocrit 40.6 % (37.0-53.0); Hemoglobin 12.7 g/dL (13.5-17.5); IMMATURE GRAN ABSOLUTE AUTO 0.06 K/mm3 (0.00-0.10); IMMATURE GRAN PERCENT AUTO 1 % (0-1); LYMPHOCYTES ABSOLUTE AUTO 1.77 K/mm3 (0.84-5.20); LYMPHOCYTES PERCENT AUTO 13 % (21-46); MONOCYTES ABSOLUTE AUTO 0.85 K/mm3 (0.16-1.47); MONOCYTES PERCENT AUTO 6 % (4-13); Mean Corpuscular HGB 25.9 pg (26.0-34.0); Mean Corpuscular HGB Conc 31.3 g/dL (31.5-36.5); Mean Corpuscular Volume 83 fL (80-100); Mean Platelet Volume 9.8 fL (9.1-12.4); NEUTROPHILS ABSOLUTE AUTO 10.44 K/mm3 (1.96-9.15); NEUTROPHILS PERCENT AUTO 78 % (41-73); Platelet Count 634 K/mm3 (150-400); RDW Standard Deviation 73.7 fL (35.1-46.3); White Blood Cell Count 13.32 K/mm3 (4.00-11.30)
[2020-11-03 16:52] LABS: Alanine Aminotransfer (ALT/SGP 18 U/L (12-78); Albumin, Blood 3.4 g/dL (3.4-5.0); Albumin/Globulin Ratio 0.8 (0.8-1.8); Alk Phos 96 U/L (50-136); Anion Gap 9 mmol/L (6-16); Aspartate Aminotrans (AST/SGOT 18 U/L (12-37); Bilirubin, Total 0.2 mg/dL (0.1-1.0); Blood Urea Nitrogen 9 mg/dL (8-24); Bun/Creatinine Ratio 9.3 (12.0-20.0); CO2, Blood 24 mmol/L (21-32); Calcium, Blood 10.1 mg/dL (8.5-10.1); Chloride, Blood 104 mmol/L (98-108); Creatinine, Blood 0.96 mg/dL (0.60-1.20); Globulin, Blood 4.3 g/dL (2.2-4.0); Glomerular Filtration Rate >60 (60-); Glucose, Blood 117 mg/dL (70-99); Potassium, Blood 3.7 mmol/L (3.5-5.5); Sodium, Blood 137 mmol/L (136-145); Total Protein, Blood 7.7 g/dL (6.4-8.2)
[2020-11-03 20:33] LABS: Phosphorus, Blood 3.3 mg/dL (2.5-4.9)
[2020-11-04 04:39] LABS: BASOPHILS ABSOLUTE AUTO 0.08 K/mm3 (0.00-0.23); BASOPHILS PERCENT AUTO 1 % (0-2); EOSINOPHILS ABSOLUTE AUTO 0.51 K/mm3 (0.00-0.68); EOSINOPHILS PERCENT AUTO 5 % (0-6); Hematocrit 40.5 % (37.0-53.0); Hemoglobin 12.1 g/dL (13.5-17.5); IMMATURE GRAN ABSOLUTE AUTO 0.03 K/mm3 (0.00-0.10); IMMATURE GRAN PERCENT AUTO 0 % (0-1); LYMPHOCYTES ABSOLUTE AUTO 2.42 K/mm3 (0.84-5.20); LYMPHOCYTES PERCENT AUTO 23 % (21-46); MONOCYTES ABSOLUTE AUTO 0.89 K/mm3 (0.16-1.47); MONOCYTES PERCENT AUTO 9 % (4-13); Mean Corpuscular HGB 25.6 pg (26.0-34.0); Mean Corpuscular HGB Conc 29.9 g/dL (31.5-36.5); Mean Corpuscular Volume 86 fL (80-100); Mean Platelet Volume 9.8 fL (9.1-12.4); NEUTROPHILS ABSOLUTE AUTO 6.45 K/mm3 (1.96-9.15); NEUTROPHILS PERCENT AUTO 62 % (41-73); Platelet Count 498 K/mm3 (150-400); RDW Coefficient Variation 25.1 % (11.7-14.2); Red Blood Cell Count 4.72 M/mm3 (4.30-5.90); White Blood Cell Count 10.38 K/mm3 (4.00-11.30)
[2020-11-04 04:53] LABS: Anion Gap 5 mmol/L (6-16); Blood Urea Nitrogen 11 mg/dL (8-24); Bun/Creatinine Ratio 11.2 (12.0-20.0); CO2, Blood 24 mmol/L (21-32); Calcium, Blood 8.9 mg/dL (8.5-10.1); Chloride, Blood 108 mmol/L (98-108); Creatinine, Blood 0.98 mg/dL (0.60-1.20); Glomerular Filtration Rate >60 (60-); Glucose, Blood 91 mg/dL (70-99); Potassium, Blood 4.4 mmol/L (3.5-5.5); Sodium, Blood 137 mmol/L (136-145)
[2020-11-05 05:03] LABS: Percent Saturation 5.5 % (20.0-50.0)
[2020-11-06] MEDS ORDERED: FENTANYL1 EAC7 TOP (14:17)
[2020-11-06] MEDS ORDERED: ZENPEP DR 20,01 EACH PO (14:22)
[2020-11-06] MEDS ORDERED: SENN187 PO (14:23)
== END 2020-11-06 15:13 | disposition home or self-care (01) | DRG 440 ==
LOC: ER 15:41 → ERHOLD 20:50 → SURS 20:50
PROVIDERS: Internal Medicine; Nurse Practitioner Acute Care; Physician Assistant; ADMIT Internal Medicine
DX: K85.90 Acute pancreatitis without necrosis or infection, unspecified (principal); I73.1 Thromboangiitis obliterans [Buerger's disease]; M19.90 Unspecified osteoarthritis, unspecified site; G43.909 Migraine, unspecified, not intractable, without status migrainosus; J44.9 Chronic obstructive pulmonary disease, unspecified; D50.9 Iron deficiency anemia, unspecified; K21.9 Gastro-esophageal reflux disease without esophagitis; G89.4 Chronic pain syndrome; R91.1 Solitary pulmonary nodule; Z86.718 Personal history of other venous thrombosis and embolism; Z89.029 Acquired absence of unspecified finger(s); Z87.891 Personal history of nicotine dependence
CPT/HCPCS: 36415; 80048; 80053; 82728; 83540; 83550; 83690; 84100; 85025; 94762; 96361; 96374; 96375; 99285-25; A9270; J0780; J1170; J1885; J2405; J2550; J2916; J2930; J3480; J7030; J7040

== ENCOUNTER 2020-11-08 08:45 | Inpatient (IN) | payer OTHER ==
[~2020-11-08] VITALS: Ht 193 cm; Wt 76.1 kg
[~2020-11-08 08:45] MED LIST changes: +FENTANYL1 EAC7 TOP; +ZENPEP DR 20,01 EACH PO
[2020-11-08 09:46] LABS: BASOPHILS ABSOLUTE AUTO 0.02 K/mm3 (0.00-0.23); BASOPHILS PERCENT AUTO 0 % (0-2); EOSINOPHILS ABSOLUTE AUTO 0.01 K/mm3 (0.00-0.68); EOSINOPHILS PERCENT AUTO 0 % (0-6); Hematocrit 43.4 % (37.0-53.0); Hemoglobin 13.7 g/dL (13.5-17.5); IMMATURE GRAN ABSOLUTE AUTO 0.12 K/mm3 (0.00-0.10); IMMATURE GRAN PERCENT AUTO 1 % (0-1); LYMPHOCYTES ABSOLUTE AUTO 1.33 K/mm3 (0.84-5.20); LYMPHOCYTES PERCENT AUTO 8 % (21-46); MONOCYTES ABSOLUTE AUTO 1.28 K/mm3 (0.16-1.47); MONOCYTES PERCENT AUTO 8 % (4-13); Mean Corpuscular HGB 26.3 pg (26.0-34.0); Mean Corpuscular HGB Conc 31.6 g/dL (31.5-36.5); Mean Corpuscular Volume 83 fL (80-100); Mean Platelet Volume 10.3 fL (9.1-12.4); NEUTROPHILS ABSOLUTE AUTO 13.12 K/mm3 (1.96-9.15); NEUTROPHILS PERCENT AUTO 83 % (41-73); Platelet Count 602 K/mm3 (150-400); RDW Coefficient Variation 24.4 % (11.7-14.2); Red Blood Cell Count 5.21 M/mm3 (4.30-5.90); White Blood Cell Count 15.88 K/mm3 (4.00-11.30)
[2020-11-08 10:03] LABS: Alanine Aminotransfer (ALT/SGP 24 U/L (12-78); Albumin, Blood 2.9 g/dL (3.4-5.0); Albumin/Globulin Ratio 0.7 (0.8-1.8); Alk Phos 93 U/L (50-136); Anion Gap 8 mmol/L (6-16); Aspartate Aminotrans (AST/SGOT 28 U/L (12-37); Bilirubin, Total 0.4 mg/dL (0.1-1.0); Blood Urea Nitrogen 10 mg/dL (8-24); CO2, Blood 23 mmol/L (21-32); Calcium, Blood 8.4 mg/dL (8.5-10.1); Chloride, Blood 101 mmol/L (98-108); Creatinine, Blood 0.72 mg/dL (0.60-1.20); Globulin, Blood 4.3 g/dL (2.2-4.0); Glomerular Filtration Rate >60 (60-); Glucose, Blood 104 mg/dL (70-99); Potassium, Blood 3.8 mmol/L (3.5-5.5); Sodium, Blood 132 mmol/L (136-145); Total Protein, Blood 7.2 g/dL (6.4-8.2)
--- NOTE | 2020-11-08 17:54 | NUR ---
a+o, npo after midnight, call light in reach, medicated as allowed but pain remains high, infusing lr with no s/sx of infection or infiltration, rm air, anxious about being ready for tomorrow's procedure
--- NOTE | 2020-11-08 17:57 | NUR ---
consultation called to dr weeks
[2020-11-08 18:14] LABS: Hemoglobin 11.9 g/dL (13.5-17.5)
[2020-11-08 23:02] LABS: Influenza A, PCR NEGATIVE (NEGATIVE); Influenza B, PCR NEGATIVE (NEGATIVE); Resp Syncytial Virus, PCR NEGATIVE (NEGATIVE); SARS-Cov-2 (COVID-19) PCR, MMC NEGATIVE (NEGATIVE)
[2020-11-09 05:21] LABS: Hematocrit 33.2 % (37.0-53.0); Hemoglobin 10.2 g/dL (13.5-17.5); Mean Corpuscular HGB 25.7 pg (26.0-34.0); Mean Corpuscular HGB Conc 30.7 g/dL (31.5-36.5); Mean Corpuscular Volume 84 fL (80-100); Mean Platelet Volume 10.2 fL (9.1-12.4); Platelet Count 468 K/mm3 (150-400); RDW Coefficient Variation 23.4 % (11.7-14.2); RDW Standard Deviation 71.8 fL (35.1-46.3); Red Blood Cell Count 3.97 M/mm3 (4.30-5.90); White Blood Cell Count 13.28 K/mm3 (4.00-11.30)
[2020-11-09 05:54] LABS: Anion Gap 8 mmol/L (6-16); Blood Urea Nitrogen 8 mg/dL (8-24); Bun/Creatinine Ratio 10.9 (12.0-20.0); CO2, Blood 23 mmol/L (21-32); Calcium, Blood 7.7 mg/dL (8.5-10.1); Chloride, Blood 106 mmol/L (98-108); Creatinine, Blood 0.73 mg/dL (0.60-1.20); Glomerular Filtration Rate >60 (60-); Glucose, Blood 98 mg/dL (70-99); Potassium, Blood 3.7 mmol/L (3.5-5.5); Sodium, Blood 137 mmol/L (136-145)
--- NOTE | 2020-11-09 05:54 | NUR ---
DIRECTOR OF STRATEGIC COMMUNICATIONS SUMMARY PT A/O X4, PLEASANT AND COOPERATIVE. INDEPENDENT IN ROOM. PT DIDN'T SLEEP MUCH TONIGHT, HE STATES HE USUALLY CAN'T SLEEP WHEN HE'S IN THE HOSPITAL. NPO SINCE MIDNIGHT EXCEPT FOR ICE CHIPS AND SIPS OF WATER PER ORDERS FOR UPPER EGD. MEDICATED FOR PAIN OVERNIGHT FOR ABD PAIN. CONTINUES TO HAVE THE SAME AMOUNT OF PAIN IN ABD. CALL LIGHT WITHIN REACH.
--- NOTE | 2020-11-09 08:48 | NUR ---
INTO [facility] VIA GURNEY FROM [facility]. History, Chart, Medications and Allergies reviewed before start of procedure.Patient confirms NPO status and agrees with scheduled surgery. Lungs clear T/O to Auscultation.PT REQUESTED RN TO SIGN BLOOD CONSENT FORM DUE TO AMPUTATION OF FINGERS BILATERALLY, UNABLE TO SIGN.
--- NOTE | 2020-11-09 09:11 | NUR ---
11/09/20 0911 Shannon Gutiérrez Darryl History, Chart, Medications and Allergies reviewed before start of procedure.Patient confirms NPO status and agrees with scheduled surgery.MONITOR INTACT WITH CONTINUOUS PULSE OXIMETRY AND INTERMITTENT BP.3-LEAD EKG REVIEWED WITH PHYSICIAN PRIOR TO START OF PROCEDURE.O2 VIA N/C INTACT THROUGHOUT SEDATION/PROCEDURE.PATIENT DETERMINED TO BE ASA APPROPRIATE FOR PROPOFOL SEDATION PRIOR TO START OF PROCEDURE BY . Bite Block Placed.
--- NOTE | 2020-11-09 13:54 | NUR ---
PT REQUESTED THAT HIS DINNER TRAY BE CANCELED R/NAUSEA, HAVE TREATED FOR NAUSEA BUT PT STILL INSISTED IT BE CANCELED
--- NOTE | 2020-11-09 18:22 | NUR ---
a+o but in a great deal of pain, said to move the tordol ahead due to the amount of pain the pt was experincing, gave medication pt said it helped but that it would not last, forwarded information to , call light in reach, LR infusing, rm air, pt sitting in the dark, treated for n/v, will continue to monitor and treat until share bsr with noc nurse and pt
--- NOTE | 2020-11-09 21:01 | NUR ---
THROWING UP DARK RED BLOOD PT HAS BEEN EXPERIENCING INCREASED PAIN IN ABD MOANING AND [place]YING ROCK, ROCKING BACK AND FORTH AND SITTING UP IN BED. VISIBLE SWEAT IS TRIPPING OFF OF PT'S FOREHEAD DUE TO PAIN. PAIN IS CAUSING PT TO THROW UP AND VICE VERSA. PT HAS THROWN UP DARK RED BLOOD ABOUT 200ML. HOSPIALIST DR. PENNY NOTIFIED. 4MG MORPHINE X1 NOW ORDERED AND GIVEN. NAUSEA MED ALSO GIVEN. DR. PENNY ALSO NOTIFIED ABOUT DARK RED BLOOD. CBC DRAW ORDERED FOR 2300. WCC.
--- NOTE | 2020-11-09 22:37 | NUR ---
RE-ASSESSED PT 2205 PT STATES HE IS FEELING WARMER NOW. HANDS ARE NOW WARM AND NO LONGER CYANOTIC. VSS. PT STATES "I JUST WANT TO GET SOME REST NOW". WCC. CALL LIGHT WITHIN REACH.
[2020-11-09 22:57] LABS: BASOPHILS ABSOLUTE AUTO 0.03 K/mm3 (0.00-0.23); BASOPHILS PERCENT AUTO 0 % (0-2); EOSINOPHILS PERCENT AUTO 0 % (0-6); Hematocrit 27.5 % (37.0-53.0); IMMATURE GRAN ABSOLUTE AUTO 0.13 K/mm3 (0.00-0.10); IMMATURE GRAN PERCENT AUTO 1 % (0-1); LYMPHOCYTES ABSOLUTE AUTO 0.43 K/mm3 (0.84-5.20); LYMPHOCYTES PERCENT AUTO 2 % (21-46); MONOCYTES ABSOLUTE AUTO 1.58 K/mm3 (0.16-1.47); MONOCYTES PERCENT AUTO 7 % (4-13); Mean Corpuscular HGB 26.6 pg (26.0-34.0); Mean Corpuscular HGB Conc 32.7 g/dL (31.5-36.5); Mean Corpuscular Volume 81 fL (80-100); Mean Platelet Volume 9.9 fL (9.1-12.4); NEUTROPHILS ABSOLUTE AUTO 21.18 K/mm3 (1.96-9.15); NEUTROPHILS PERCENT AUTO 91 % (41-73); Platelet Count 417 K/mm3 (150-400); RDW Coefficient Variation 23.2 % (11.7-14.2); RDW Standard Deviation 68.6 fL (35.1-46.3); Red Blood Cell Count 3.38 M/mm3 (4.30-5.90); White Blood Cell Count 23.35 K/mm3 (4.00-11.30)
--- NOTE | 2020-11-09 22:58 | NUR ---
SCD'S PLACED BILATERAL CALF SCD'S PLACED. PT DENIES CALF PAIN, PEDAL PULSES PRESENT, CALF NOT HOT TO TOUCH.
--- NOTE | 2020-11-10 05:07 | NUR ---
TRACTOR CRANE ENGINEER SUMMARY PT A/O X4. INDEPENDENT IN ROOM. PT WAS FINALLY ABLE TO SLEEP TONIGHT HE STATED, HOWEVER HE DID GET A LITTLE ANNOYED WITH STAFF COMING IN AND OUT AT TIMES. PT IS NO LONGER SHIVERING AND VITALS ARE STABLE. MEDICATED WITH NAUSEA MED X2 NOC SHIFT. PT IS NO LONGER SPITTING UP BLOOD. CURRENTLY RESTING IN BED. BILATERAL SCD'S IN PLACE. CALL LIGHT WITHIN REACH.
[2020-11-10 09:43] LABS: Hematocrit 28.1 % (37.0-53.0); Hemoglobin 9.2 g/dL (13.5-17.5); Mean Corpuscular HGB 26.5 pg (26.0-34.0); Mean Corpuscular HGB Conc 32.7 g/dL (31.5-36.5); Mean Corpuscular Volume 81 fL (80-100); Mean Platelet Volume 10.2 fL (9.1-12.4); Platelet Count 436 K/mm3 (150-400); RDW Coefficient Variation 23.2 % (11.7-14.2); Red Blood Cell Count 3.47 M/mm3 (4.30-5.90); White Blood Cell Count 16.63 K/mm3 (4.00-11.30)
[2020-11-10 10:11] LABS: Anion Gap 8 mmol/L (6-16); Blood Urea Nitrogen 8 mg/dL (8-24); Bun/Creatinine Ratio 13.7 (12.0-20.0); CO2, Blood 24 mmol/L (21-32); Calcium, Blood 7.9 mg/dL (8.5-10.1); Chloride, Blood 103 mmol/L (98-108); Creatinine, Blood 0.58 mg/dL (0.60-1.20); Glomerular Filtration Rate >60 (60-); Glucose, Blood 102 mg/dL (70-99); Potassium, Blood 3.1 mmol/L (3.5-5.5); Sodium, Blood 135 mmol/L (136-145)
--- NOTE | 2020-11-10 17:56 | NUR ---
SHIFT SUMMARY. PT PLEASANT AND COOPERATIVE THIS SHIFT. PT REPORTS THAT HE DID NOT WANT TO EAT TODAY HE BELIEVES IT IS AGGREVATING HIS CHRONIC PANCREATITIS AND CAUSING INCREASED PAIN AND NAUSEA. PT RECIEVING MAINTINENCE FLUIDS. THIS EVENING PT REPORTS THAT PAIN AND NAUSEA HAS IMPROVED SINCE ONLY HAVING ICE CHIPS TODAY. POWERGLIDE IV PLACED BY CN PT IS DIFFICULT IV START AND BLOOD DRAW. PLAN IS FOR ENDOSCOPY TOMORROW FOR BIOPSIES, PT IS AWARE TO BE NPO AFTER MIDNIGHT. K 3.1 THIS AM, PT RECIEVED KCL 40 MEQ IV. NO VOMMITTING, PT REPORTS NAUSEA INTERMITTENTLY THAT IS MANAGED WELL WITH CURRENT ORDERS. PT REPORTS MAROON COLORED STOOL, THIS RN OBSERVED STOOL, STOOL WAS BLACK/MAROON AND FORMED. NO OTHER CHANGES OR CONCERNS.
--- NOTE | 2020-11-11 05:00 | NUR ---
SHIFT SUMMARY: VSS. AFEB. A/OX3. MED FOR NAUSEA SEVERAL TIMES. NO EPISODES OF VOMITING TONIGHT. REPORTS MAROON COLORED STOOL. PT HAS ONLY TAKEN ICE CHIPS AND SIPS BY MOUTH TONIGHT. REFUSING PO MEDS. MAINTAINANCE FLUIDS CONTINUOUSLY. BT ACTIVE X 4. PT STATES ABD SEEMS DISTENDED COMPARED TO HIS BASELINE, TENDER AND FIRM TO THE TOUCH. SCHEDULED TO HAVE ENDOSCOPY AND COLONOSCOPY TODAY. SLEPT MINIMALLY. NO ACUTE OVERNIGHT EVENTS. WCTM.
[2020-11-11 06:11] LABS: Hematocrit 27.7 % (37.0-53.0); Hemoglobin 8.8 g/dL (13.5-17.5); Mean Corpuscular HGB 25.8 pg (26.0-34.0); Mean Corpuscular HGB Conc 31.8 g/dL (31.5-36.5); Mean Corpuscular Volume 81 fL (80-100); Mean Platelet Volume 10.1 fL (9.1-12.4); Platelet Count 470 K/mm3 (150-400); RDW Coefficient Variation 23.1 % (11.7-14.2); RDW Standard Deviation 68.5 fL (35.1-46.3); Red Blood Cell Count 3.41 M/mm3 (4.30-5.90); White Blood Cell Count 12.88 K/mm3 (4.00-11.30)
[2020-11-11 06:25] LABS: Anion Gap 11 mmol/L (6-16); Blood Urea Nitrogen 6 mg/dL (8-24); Bun/Creatinine Ratio 8.8 (12.0-20.0); CO2, Blood 22 mmol/L (21-32); Chloride, Blood 103 mmol/L (98-108); Creatinine, Blood 0.68 mg/dL (0.60-1.20); Glomerular Filtration Rate >60 (60-); Glucose, Blood 58 mg/dL (70-99); Potassium, Blood 3.3 mmol/L (3.5-5.5); Sodium, Blood 136 mmol/L (136-145)
--- NOTE | 2020-11-11 16:18 | NUR ---
SUMMARY PT NPO X WATER/ICE 2 ONSET OF SHIFT, STARTED GOLYTELY BOWEL PREP APPROX 0815 FOR EGD/COLONOSCOPY THIS AFTERNOON w DR ENGEL. PT IS A/O X4, PLEASANT/COOPERATIVE AFFECT. HE STATE CONTINUING ABD PAIN THAT HE THINKS IS R/T RECURRING PANCREATITIS, DR REYES IN TO SEE HIM ORDER IV DILAUDID 0.5MG Q4P, PT STATE GOOD RELIEF/EFFECTIVE. HAVE GIVEN IV REGLAN & ZOFAN TODAY FOR NAUSEA RELIEF. BOWEL PREP COMPLETED APPROX 1300. GRAIN MILLER HELPER UP TO TAKE HIM OUT FOR PROCEDURE APPROX 1630. VSS.
--- NOTE | 2020-11-11 16:53 | NUR ---
TO SDS PRE OP FOR EGD AND COLON. LUNGS CLEAR. PRE PROCEDURE TEACHING DONE
--- NOTE | 2020-11-11 17:28 | NUR ---
11/11/20 1728 BRANDO MALONE History, Chart, Medications and Allergies reviewed before start of procedure. 3-LEAD EKG REVIEWED WITH PHYSICIAN PRIOR TO START OF PROCEDURE. O2 VIA N/C INTACT THROUGHOUT SEDATION/PROCEDURE. MONITOR INTACT WITH CONTINUOUS PULSE OXIMETRY AND INTERMITTENT BP. PATIENT DETERMINED TO BE ASA APPROPRIATE FOR PROPOFOL SEDATION PRIOR TO START OF PROCEDURE BY DR. ENGEL.
--- NOTE | 2020-11-12 05:48 | NUR ---
SHIFT SUMMARY PT RETURNED FROM EGD/COLONOSCOPY AT APPROX 1945. PT HAD A MOSTLY UNEVENTFUL NIGHT. SLEPT OFF AND ON. PT DID CONTINUE TO COMPLAIN OF ABD PAIN. THROUGHOUT ABD BUT GREATER IN MID UPPER ABD. INTERMITTENT NAUSEA WELL. PT DECLINED DINNER TRAY BUT REQUESTED FREQUENT SNACKS FROM THE PANTRY, MOSTLY CHICKEN BROTH AND ICE CHIPS, BUT PT DID EAT THE MEAT FROM HALF A SANDWICH AND SEVERAL PUDDINGS. NO S/S BLEEDING. NO EMESIS OR STOOL THIS EVENING. VITAL SIGNS STABLE. PT HOPEFUL TO RETURN HOME TODAY. WILL CONTINUE TO MONITOR AND REPORT TO DAY RN.
[2020-11-12 06:12] LABS: Hematocrit 27.4 % (37.0-53.0); Hemoglobin 8.8 g/dL (13.5-17.5); Mean Corpuscular HGB 25.8 pg (26.0-34.0); Mean Corpuscular HGB Conc 32.1 g/dL (31.5-36.5); Mean Corpuscular Volume 80 fL (80-100); Mean Platelet Volume 10.5 fL (9.1-12.4); Platelet Count 549 K/mm3 (150-400); RDW Coefficient Variation 22.6 % (11.7-14.2); RDW Standard Deviation 66.5 fL (35.1-46.3); Red Blood Cell Count 3.41 M/mm3 (4.30-5.90); White Blood Cell Count 12.16 K/mm3 (4.00-11.30)
[2020-11-12 06:53] LABS: Alanine Aminotransfer (ALT/SGP 70 U/L (12-78); Albumin, Blood 2.3 g/dL (3.4-5.0); Albumin/Globulin Ratio 0.6 (0.8-1.8); Alk Phos 492 U/L (50-136); Anion Gap 11 mmol/L (6-16); Aspartate Aminotrans (AST/SGOT 43 U/L (12-37); Bilirubin, Total 0.8 mg/dL (0.1-1.0); Blood Urea Nitrogen 5 mg/dL (8-24); Bun/Creatinine Ratio 7.9 (12.0-20.0); CO2, Blood 23 mmol/L (21-32); Calcium, Blood 7.9 mg/dL (8.5-10.1); Chloride, Blood 102 mmol/L (98-108); Creatinine, Blood 0.63 mg/dL (0.60-1.20); Ferritin, Serum 477 ng/mL (26-388); Globulin, Blood 3.6 g/dL (2.2-4.0); Glomerular Filtration Rate >60 (60-); Glucose, Blood 68 mg/dL (70-99); Iron Serum 18 ug/dL (65-175); Percent Saturation 10.2 % (20.0-50.0); Potassium, Blood 3.4 mmol/L (3.5-5.5); Sodium, Blood 136 mmol/L (136-145); Total Iron Binding Capacity 176 ug/dL (250-450); Total Protein, Blood 5.9 g/dL (6.4-8.2)
[2020-11-12] MEDS ORDERED: OMEP20ER PO (11:31)
--- NOTE | 2020-11-12 12:55 | NUR ---
SUMMARY/DISCHARGE PT DISCHARGED TO HOME, RIDE ARRANGED WITH [facility] BY CARE MANAGEMENT, PT TAKEN DOWN SAFELY VIA WHEELCHAIR
--- NOTE | 2020-12-17 19:39 | NUR ---
REVIEWED PT'S INFORMATION FOR CURRENT ADMISSION
== END 2020-11-12 12:57 | disposition home or self-care (01) | DRG 378 ==
LOC: ER 08:45 → MEDS 08:46 → ER 08:46 → MEDS 08:46
PROVIDERS: Emergency Medicine; Internal Medicine; Internal Medicine Gastroenterology; Nurse Practitioner Acute Care; ADMIT Internal Medicine
PROC: 0DJ08ZZ Inspection of Upper Intestinal Tract, Via Natural or Artificial Opening Endoscopic (ICD-10-PCS; 2020-11-09)
PROC: 0DBH8ZZ Excision of Cecum, Via Natural or Artificial Opening Endoscopic (ICD-10-PCS; 2020-11-11)
PROC: 0DB98ZZ Excision of Duodenum, Via Natural or Artificial Opening Endoscopic (ICD-10-PCS; principal; 2020-11-11 18:00)
PROC: 0DB68ZX Excision of Stomach, Via Natural or Artificial Opening Endoscopic, Diagnostic (ICD-10-PCS; 2020-11-11 18:00)
PROC: 0DBK8ZZ Excision of Ascending Colon, Via Natural or Artificial Opening Endoscopic (ICD-10-PCS; 2020-11-11 18:00)
PROC: 0DBL8ZZ Excision of Transverse Colon, Via Natural or Artificial Opening Endoscopic (ICD-10-PCS; 2020-11-11 18:00)
DX: K25.4 Chronic or unspecified gastric ulcer with hemorrhage (principal); K86.1 Other chronic pancreatitis; K22.10 Ulcer of esophagus without bleeding; J44.9 Chronic obstructive pulmonary disease, unspecified; D50.9 Iron deficiency anemia, unspecified; K63.5 Polyp of colon; Z87.891 Personal history of nicotine dependence; Z86.718 Personal history of other venous thrombosis and embolism; G43.909 Migraine, unspecified, not intractable, without status migrainosus; M19.90 Unspecified osteoarthritis, unspecified site; Z89.029 Acquired absence of unspecified finger(s); G89.29 Other chronic pain; Z98.890 Other specified postprocedural states; Z79.899 Other long term (current) drug therapy; D72.828 Other elevated white blood cell count; K31.89 Other diseases of stomach and duodenum; K44.9 Diaphragmatic hernia without obstruction or gangrene; K57.30 Diverticulosis of large intestine without perforation or abscess without bleeding
CPT/HCPCS: 0241U; 36415; 80048; 80053; 82272; 82728; 83540; 83550; 83690; 85014; 85018; 85025; 85027; 86301; 88305; 88342; 93005; 93010; 93970; 96361; 96374; 96375; 96376; 99285-25; A9270; C1751; C9113; G0378; J1170; J1885; J2250; J2270; J2405; J2704; J2765; J3480; J7120; Q2038

== ENCOUNTER 2020-12-17 10:32 | Inpatient (IN) | payer OTHER ==
[~2020-12-17] VITALS: Ht 193 cm; Wt 71.7 kg
[~2020-12-17 10:32] MED LIST changes: +OMEP20ER PO
[2020-12-17 11:23] LABS: BASOPHILS ABSOLUTE AUTO 0.07 K/mm3 (0.00-0.23); BASOPHILS PERCENT AUTO 0 % (0-2); EOSINOPHILS ABSOLUTE AUTO 0.02 K/mm3 (0.00-0.68); EOSINOPHILS PERCENT AUTO 0 % (0-6); Hematocrit 37.4 % (37.0-53.0); Hemoglobin 11.8 g/dL (13.5-17.5); IMMATURE GRAN ABSOLUTE AUTO 0.12 K/mm3 (0.00-0.10); IMMATURE GRAN PERCENT AUTO 1 % (0-1); LYMPHOCYTES ABSOLUTE AUTO 2.31 K/mm3 (0.84-5.20); LYMPHOCYTES PERCENT AUTO 13 % (21-46); MONOCYTES ABSOLUTE AUTO 1.38 K/mm3 (0.16-1.47); MONOCYTES PERCENT AUTO 8 % (4-13); Mean Corpuscular HGB 24.9 pg (26.0-34.0); Mean Corpuscular HGB Conc 31.6 g/dL (31.5-36.5); Mean Corpuscular Volume 79 fL (80-100); Mean Platelet Volume 9.9 fL (9.1-12.4); NEUTROPHILS ABSOLUTE AUTO 14.08 K/mm3 (1.96-9.15); NEUTROPHILS PERCENT AUTO 78 % (41-73); Platelet Count 540 K/mm3 (150-400); RDW Coefficient Variation 18.2 % (11.7-14.2); RDW Standard Deviation 51.1 fL (35.1-46.3); Red Blood Cell Count 4.73 M/mm3 (4.30-5.90); White Blood Cell Count 17.98 K/mm3 (4.00-11.30)
[2020-12-17 11:37] LABS: Source, Urine Clean Catch
[2020-12-17 11:39] LABS: Bilirubin, Urine Neg (Neg); Blood, Urine Neg (Neg); Color, Urine Yellow (P-Yellow); Glucose Qualitative, Urine Neg (Neg); Ketones, Urine 2+ (Neg); Leukocyte Esterase, Urine 1+ (Neg); Nitrite, Urine Neg (Neg); Protein, Urine 2+ (Neg); Specific Gravity, Urine 1.015 (1.003-1.022); Urobilinogen, Urine 1+ (Normal)
[2020-12-17 11:45] LABS: Alanine Aminotransfer (ALT/SGP 16 U/L (12-78); Albumin, Blood 2.7 g/dL (3.4-5.0); Albumin/Globulin Ratio 0.5 (0.8-1.8); Alk Phos 131 U/L (50-136); Anion Gap 9 mmol/L (6-16); Aspartate Aminotrans (AST/SGOT 12 U/L (12-37); Bilirubin, Total 0.4 mg/dL (0.1-1.0); Blood Urea Nitrogen 8 mg/dL (8-24); CO2, Blood 23 mmol/L (21-32); Calcium, Blood 9.5 mg/dL (8.5-10.1); Chloride, Blood 100 mmol/L (98-108); Creatinine, Blood 0.73 mg/dL (0.60-1.20); Globulin, Blood 5.3 g/dL (2.2-4.0); Glomerular Filtration Rate >60 (60-); Glucose, Blood 105 mg/dL (70-99); Potassium, Blood 3.7 mmol/L (3.5-5.5); Sodium, Blood 132 mmol/L (136-145)
[2020-12-17 11:52] LABS: Appearance, Urine Clear (Clear)
[2020-12-17 11:55] LABS: White Blood Cells, Urine 0-2 /hpf (0-5)
[2020-12-17 11:56] LABS: Amorphous Light (0-Heavy); Bacteria Few /hpf; Granular Casts 0-2 /lpf (0); Hyaline Casts 0-2 /lpf (0-2); Mucus Mod (0-Heavy); Red Blood Cells, Urine Not Seen /hpf (0-2); Squamous Epithelial Cells Rare /hpf (Few)
--- NOTE | 2020-12-17 18:54 | NUR ---
shift summary/admit note- PT ADMITTED THROUGH THE ED. PAIN IS SEVERE MEDICATED WITH DILAUDID AFTER VITALS WERE TAKEN. PT REFUSED SCD'S, THEY ARE IN THE ROOM. HEATING PAD PROVIDED FOR BACK PAIN. ADMIT COMPLETE WITH THE EXCEPTION OF Hx. PT IN BED SITTING UP ALERT AND ORIENTED. INDEPENDEENT TO THE BATHROOM. NO S&S OF DISTRESS NOTED WILL PASS ON TO NIGHT RN IN BEDSIDE REPORT.
[2020-12-18 05:10] LABS: BASOPHILS ABSOLUTE AUTO 0.06 K/mm3 (0.00-0.23); BASOPHILS PERCENT AUTO 0 % (0-2); EOSINOPHILS ABSOLUTE AUTO 0.09 K/mm3 (0.00-0.68); EOSINOPHILS PERCENT AUTO 1 % (0-6); Hematocrit 34.4 % (37.0-53.0); Hemoglobin 10.8 g/dL (13.5-17.5); IMMATURE GRAN ABSOLUTE AUTO 0.12 K/mm3 (0.00-0.10); IMMATURE GRAN PERCENT AUTO 1 % (0-1); LYMPHOCYTES PERCENT AUTO 12 % (21-46); MONOCYTES ABSOLUTE AUTO 1.53 K/mm3 (0.16-1.47); MONOCYTES PERCENT AUTO 8 % (4-13); Mean Corpuscular HGB 24.8 pg (26.0-34.0); Mean Corpuscular HGB Conc 31.4 g/dL (31.5-36.5); Mean Corpuscular Volume 79 fL (80-100); Mean Platelet Volume 9.9 fL (9.1-12.4); NEUTROPHILS ABSOLUTE AUTO 14.36 K/mm3 (1.96-9.15); NEUTROPHILS PERCENT AUTO 79 % (41-73); Platelet Count 542 K/mm3 (150-400); RDW Coefficient Variation 17.8 % (11.7-14.2); RDW Standard Deviation 50.5 fL (35.1-46.3); Red Blood Cell Count 4.35 M/mm3 (4.30-5.90); White Blood Cell Count 18.26 K/mm3 (4.00-11.30)
[2020-12-18 05:40] LABS: Alanine Aminotransfer (ALT/SGP 17 U/L (12-78); Albumin, Blood 2.6 g/dL (3.4-5.0); Albumin/Globulin Ratio 0.5 (0.8-1.8); Alk Phos 129 U/L (50-136); Anion Gap 9 mmol/L (6-16); Aspartate Aminotrans (AST/SGOT 14 U/L (12-37); Bilirubin, Total 0.6 mg/dL (0.1-1.0); Blood Urea Nitrogen 8 mg/dL (8-24); CO2, Blood 23 mmol/L (21-32); Calcium, Blood 8.9 mg/dL (8.5-10.1); Chloride, Blood 102 mmol/L (98-108); Creatinine, Blood 0.73 mg/dL (0.60-1.20); Globulin, Blood 4.8 g/dL (2.2-4.0); Glomerular Filtration Rate >60 (60-); Glucose, Blood 95 mg/dL (70-99); Magnesium, Blood 1.7 mg/dL (1.6-2.4); Potassium, Blood 3.8 mmol/L (3.5-5.5); Sodium, Blood 134 mmol/L (136-145); Total Protein, Blood 7.4 g/dL (6.4-8.2)
--- NOTE | 2020-12-18 05:53 | NUR ---
SHIFT SUMMARY PT CONTINUED TO REPORT PAIN TO R ABD AND INTERMITTENT NASUEA. MEDICATED PER EMAR. NO EMESIS. PT REMAINED CLEAR LIQUIDS. ATE SEVERAL JELLO CUPS AND DRANK WATER. PT HAS ONLY 2 DIGITS ON ONE HAND AND 1 DIGIT. PERFORMS ADL'S WELL INDEPENDENTLY. PT SLEPT VERY LITTLE, IF AT ALL. VITAL SIGNS STABLE. WILL CONTINUE TO MONITOR.
--- NOTE | 2020-12-18 17:29 | NUR ---
SHIFT SUMMARY- PT A/OX4, INDEP UP IN ROOM. PT MEDICATED FOR EPIGASTRIC PAIN THAT RADIATES TO BACK AT TIMES. PT STARTED ON ORAL DILAUDID 4MG Q4H AND PT REPORTS IT IS SUFFICIENT AT THIS TIME. PT TOLERATING CLEAR LIQUIDS AND REQUESTED TO START ON A DIET, PT TO START REGULAR DIET THIS EVENING FOR DINNER. PT MEDICATED FOR NAUSEA THIS AM BUT NO FURTHER COMPLAINTS. LS CLEAR, ON RA. PT STARTED ON ALBUTEROL, PT STATES HE USES ALBUTEROL INHALER AT HOME AND REPORTS HAS DIFFICULTY BREATHING AT TIMES. NO OTHER ACUTE CHANGES THIS SHIFT.
[2020-12-19 05:31] LABS: Hematocrit 31.5 % (37.0-53.0); Hemoglobin 9.9 g/dL (13.5-17.5); Mean Corpuscular HGB 24.6 pg (26.0-34.0); Mean Corpuscular HGB Conc 31.4 g/dL (31.5-36.5); Mean Corpuscular Volume 78 fL (80-100); Mean Platelet Volume 9.7 fL (9.1-12.4); Platelet Count 557 K/mm3 (150-400); RDW Coefficient Variation 17.7 % (11.7-14.2); RDW Standard Deviation 48.9 fL (35.1-46.3); Red Blood Cell Count 4.03 M/mm3 (4.30-5.90); White Blood Cell Count 21.69 K/mm3 (4.00-11.30)
[2020-12-19 05:59] LABS: Anion Gap 10 mmol/L (6-16); Blood Urea Nitrogen 4 mg/dL (8-24); CO2, Blood 23 mmol/L (21-32); Calcium, Blood 8.6 mg/dL (8.5-10.1); Chloride, Blood 99 mmol/L (98-108); Creatinine, Blood 0.67 mg/dL (0.60-1.20); Glomerular Filtration Rate >60 (60-); Glucose, Blood 96 mg/dL (70-99); Potassium, Blood 3.8 mmol/L (3.5-5.5); Sodium, Blood 132 mmol/L (136-145)
--- NOTE | 2020-12-19 06:23 | NUR ---
SHIFT SUMMARY PT CONTINUED TO HAVE ABD PAIN. MEDICATED W/ PO DILAUDID APPROX EVERY 4 HOURS. PAIN APPEARED TO BE BETTER MANAGED WITH ORAL MEDICATION. NO NAUSEA THIS EVENING. PT SLEPT BETTER THIS EVENING. VITAL SIGNS STABLE. NO ACUTE CHANGES THIS EVENING.
--- NOTE | 2020-12-19 17:55 | NUR ---
SHIFT SUMMARY NO ACUTE CHANGES T/O SHIFT, A&Ox4, CALM AND COOPERATIVE c CARE. DENIES ANY DISTRESS T/O SHIFT BESIDES PAIN IN THE ABD. TREATED FOR PAIN x2 THIS SHIFT. PAIN APPEARS TO BE WELL CONTROLED WITH CURRENT MEDICATION DUE TO PT RESTING MORE. PT IS TOLERATING ORAL INTAKE AND EATING MORE THIS SHIFT. PT IS TO BE TRANSFERED TO [facility] WITHIN THE NEXT 48 HRS, HE IS ON THE LIST. COBRA TRANSFER ORDERS ARE IN. PT IS CURRENTLY RESTING IN BED WITH CALL LIGHT WITHIN REACH. INDEPENDENT IN ROOM, CALLS APPROPRIATELY.
[2020-12-19 18:12] LABS: Influenza A, PCR NEGATIVE (NEGATIVE); Influenza B, PCR NEGATIVE (NEGATIVE); Resp Syncytial Virus, PCR NEGATIVE (NEGATIVE); SARS-Cov-2 (COVID-19) PCR, MMC NEGATIVE (NEGATIVE)
--- NOTE | 2020-12-20 04:47 | NUR ---
SUPERVISOR COMMISSARY PRODUCTION SUMMARY A/OX4, IND IN ROOM. C/O PAIN TO ABD, MEDICATED PER EMAR. DENIES SOB. IV FLUIDS RUNNING AT 75 MLS/HR. AWAITING COBRA TRANSFER TO [facility]. NO ACUTE CHANGES AT THIS TIME. BED IN LOWEST POSITION WITH CALL LIGHT IN REACH. WILL CONTINUE TO MONITOR AND REPORT TO ONCOMING RN.
[2020-12-20 05:15] LABS: BASOPHILS ABSOLUTE AUTO 0.06 K/mm3 (0.00-0.23); BASOPHILS PERCENT AUTO 0 % (0-2); EOSINOPHILS ABSOLUTE AUTO 0.08 K/mm3 (0.00-0.68); EOSINOPHILS PERCENT AUTO 1 % (0-6); Hematocrit 29.4 % (37.0-53.0); Hemoglobin 9.3 g/dL (13.5-17.5); IMMATURE GRAN ABSOLUTE AUTO 0.09 K/mm3 (0.00-0.10); IMMATURE GRAN PERCENT AUTO 1 % (0-1); LYMPHOCYTES ABSOLUTE AUTO 2.25 K/mm3 (0.84-5.20); LYMPHOCYTES PERCENT AUTO 13 % (21-46); MONOCYTES ABSOLUTE AUTO 1.75 K/mm3 (0.16-1.47); MONOCYTES PERCENT AUTO 10 % (4-13); Mean Corpuscular HGB 24.9 pg (26.0-34.0); Mean Corpuscular HGB Conc 31.6 g/dL (31.5-36.5); Mean Corpuscular Volume 79 fL (80-100); Mean Platelet Volume 9.4 fL (9.1-12.4); NEUTROPHILS PERCENT AUTO 76 % (41-73); Platelet Count 507 K/mm3 (150-400); RDW Coefficient Variation 17.7 % (11.7-14.2); RDW Standard Deviation 49.5 fL (35.1-46.3); Red Blood Cell Count 3.73 M/mm3 (4.30-5.90); White Blood Cell Count 17.53 K/mm3 (4.00-11.30)
[2020-12-20 05:38] LABS: Alanine Aminotransfer (ALT/SGP 22 U/L (12-78); Albumin, Blood 2.4 g/dL (3.4-5.0); Albumin/Globulin Ratio 0.6 (0.8-1.8); Alk Phos 225 U/L (50-136); Anion Gap 7 mmol/L (6-16); Aspartate Aminotrans (AST/SGOT 28 U/L (12-37); Bilirubin, Total 0.5 mg/dL (0.1-1.0); Blood Urea Nitrogen 5 mg/dL (8-24); Bun/Creatinine Ratio 7.5 (12.0-20.0); CO2, Blood 26 mmol/L (21-32); Chloride, Blood 102 mmol/L (98-108); Creatinine, Blood 0.66 mg/dL (0.60-1.20); Globulin, Blood 4.1 g/dL (2.2-4.0); Glomerular Filtration Rate >60 (60-); Glucose, Blood 104 mg/dL (70-99); Potassium, Blood 3.5 mmol/L (3.5-5.5); Sodium, Blood 135 mmol/L (136-145); Total Protein, Blood 6.5 g/dL (6.4-8.2)
--- NOTE | 2020-12-20 18:35 | NUR ---
PT AWAKE AT START OF SHIFT, INDEPENDENT IN RM. WAITING FOR BED TO BE AVAILABLE AT [facility] FOR POSSIBLE SX DRAINAGE OF PANCREATIC FLUID. PT MEDICATED FOR C/O MID ABD PAIN PRIOR TO START OF SHIFT. PT THEN CALLING Q4 HRS, EACH TIME AVAILABLE. [facility] CALLED TO REPORT BED AVAILABLE; 14A, RM 52, BED 1. REPORT CALLED TO CHEY AT 13:49. [phone]. PT MEDICATED WHEN TX HERE TO P/U. PT ABLE TO WALK TO [facility]. NO C/O. NO S/SX OF DISTRESS NOTED.
== END 2020-12-20 15:35 | disposition short-term general hospital (02) | DRG 439 ==
LOC: ER 10:32 → MEDS 14:31 → ENPENDDIS 12-19 14:17 → MEDS 12-20 15:35
PROVIDERS: Emergency Medicine; Nurse Practitioner Acute Care; ADMIT Internal Medicine
DX: K86.3 Pseudocyst of pancreas (principal); L02.91 Cutaneous abscess, unspecified; K22.10 Ulcer of esophagus without bleeding; K25.9 Gastric ulcer, unspecified as acute or chronic, without hemorrhage or perforation; K86.1 Other chronic pancreatitis; J44.9 Chronic obstructive pulmonary disease, unspecified; D50.9 Iron deficiency anemia, unspecified; Z20.822 Contact with and (suspected) exposure to COVID-19; K21.9 Gastro-esophageal reflux disease without esophagitis; I73.1 Thromboangiitis obliterans [Buerger's disease]; M19.90 Unspecified osteoarthritis, unspecified site; G43.909 Migraine, unspecified, not intractable, without status migrainosus; G44.89 Other headache syndrome; Z86.718 Personal history of other venous thrombosis and embolism; Z89.029 Acquired absence of unspecified finger(s)
CPT/HCPCS: 0241U; 36415; 74177; 80048; 80053; 81001; 83690; 83735; 85025; 85027; 87086; 93005; 93010; 94640; 94760; 96361; 96365-59; 96375; 96376; 99285-25; A9270; J1170; J1650; J2185; J2270; J2405; J2765; J3010; J3370; J7030; J7050; Q9967

== ENCOUNTER 2021-01-15 08:38 | Day surgery (SDC) | payer OTHER ==
[~2021-01-15] VITALS: Ht 193 cm; Wt 70.3 kg
--- NOTE | 2021-01-15 10:23 | NUR ---
01/15/21 1023 Krissy Zapata 1 IV ATTEMPT IN RAC BY ISAC POZO INFILTRATED 1 IV ATTEMPT IN RAC BY ISAC VELARDE SUCCESSFUL, 22 GAUGE PLACED
== END 2021-01-15 11:35 | disposition home or self-care (01) ==
LOC: ORSCSDS 08:38
PROVIDERS: Internal Medicine Gastroenterology
PROC: 0DB58ZX Excision of Esophagus, Via Natural or Artificial Opening Endoscopic, Diagnostic (ICD-10-PCS; principal; 2021-01-15 10:15)
PROC: 0DB78ZX Excision of Stomach, Pylorus, Via Natural or Artificial Opening Endoscopic, Diagnostic (ICD-10-PCS; principal; 2021-01-15 10:15)
DX: K31.7 Polyp of stomach and duodenum (principal); K25.4 Chronic or unspecified gastric ulcer with hemorrhage; Z86.718 Personal history of other venous thrombosis and embolism; Z79.01 Long term (current) use of anticoagulants; J44.9 Chronic obstructive pulmonary disease, unspecified; Z79.899 Other long term (current) drug therapy; Z79.82 Long term (current) use of aspirin
CPT/HCPCS: 88305; 88341; 88342; J2250; J2704; J7120

== ENCOUNTER 2022-04-09 04:07 | Observation (INO) | payer OTHER ==
[~2022-04-09] VITALS: Ht 193 cm; Wt 79.5 kg
[2022-04-09 04:36] LABS: BASOPHILS ABSOLUTE AUTO 0.04 K/mm3 (0.00-0.23); BASOPHILS PERCENT AUTO 1 % (0-2); EOSINOPHILS ABSOLUTE AUTO 0.15 K/mm3 (0.00-0.68); EOSINOPHILS PERCENT AUTO 5 % (0-6); Hemoglobin 15.8 g/dL (13.5-17.5); IMMATURE GRAN ABSOLUTE AUTO 0.01 K/mm3 (0.00-0.10); IMMATURE GRAN PERCENT AUTO 0 % (0-1); LYMPHOCYTES ABSOLUTE AUTO 1.05 K/mm3 (0.84-5.20); LYMPHOCYTES PERCENT AUTO 33 % (21-46); MONOCYTES ABSOLUTE AUTO 0.38 K/mm3 (0.16-1.47); MONOCYTES PERCENT AUTO 12 % (4-13); Mean Corpuscular HGB 31.3 pg (26.0-34.0); Mean Corpuscular HGB Conc 34.3 g/dL (31.5-36.5); Mean Corpuscular Volume 91 fL (80-100); Mean Platelet Volume 9.7 fL (9.1-12.4); NEUTROPHILS PERCENT AUTO 50 % (41-73); Platelet Count 152 K/mm3 (150-400); RDW Standard Deviation 46.5 fL (35.1-46.3); Red Blood Cell Count 5.05 M/mm3 (4.30-5.90); White Blood Cell Count 3.23 K/mm3 (4.00-11.30)
[2022-04-09 05:05] LABS: Albumin, Blood 3.3 g/dL (3.4-5.0); Albumin/Globulin Ratio 0.8 (0.8-1.8); Bilirubin, Total 0.8 mg/dL (0.1-1.0); Bun/Creatinine Ratio 6.5 (12.0-20.0); Calcium, Blood 9.2 mg/dL (8.5-10.1); Creatinine, Blood 0.61 mg/dL (0.60-1.20); Globulin, Blood 4.4 g/dL (2.2-4.0); Potassium, Blood 3.7 mmol/L (3.5-5.5); Total Protein, Blood 7.7 g/dL (6.4-8.2)
[2022-04-09 15:01] LABS: SARS-Cov-2 (COVID-19) PCR, MMC NEGATIVE (NEGATIVE)
--- NOTE | 2022-04-09 18:58 | NUR ---
PATIENT'S L CALF WITH EDEMA AND LARGE HARD KNOT PALPATED. CIRCULATION IMPAIRED R/T BEURGER'S DX, HAS HX OF DVT'S. U/S COMPLETED OF RLE, BUT NOT LEFT. DR. DIETZ NOTIFIED OF THIS FINDING, WILL COME TO ASSESS.
[2022-04-09] MEDS ORDERED: Ventolin/Prove6.7 GM INH (23:21)
[2022-04-10 05:08] LABS: BASOPHILS ABSOLUTE AUTO 0.05 K/mm3 (0.00-0.23); BASOPHILS PERCENT AUTO 1 % (0-2); EOSINOPHILS ABSOLUTE AUTO 0.14 K/mm3 (0.00-0.68); EOSINOPHILS PERCENT AUTO 3 % (0-6); Hematocrit 42.9 % (37.0-53.0); Hemoglobin 14.5 g/dL (13.5-17.5); IMMATURE GRAN ABSOLUTE AUTO 0.01 K/mm3 (0.00-0.10); IMMATURE GRAN PERCENT AUTO 0 % (0-1); LYMPHOCYTES ABSOLUTE AUTO 1.06 K/mm3 (0.84-5.20); LYMPHOCYTES PERCENT AUTO 26 % (21-46); MONOCYTES PERCENT AUTO 10 % (4-13); Mean Corpuscular HGB 31.7 pg (26.0-34.0); Mean Corpuscular HGB Conc 33.8 g/dL (31.5-36.5); Mean Corpuscular Volume 94 fL (80-100); Mean Platelet Volume 10.1 fL (9.1-12.4); NEUTROPHILS ABSOLUTE AUTO 2.44 K/mm3 (1.96-9.15); NEUTROPHILS PERCENT AUTO 60 % (41-73); Platelet Count 151 K/mm3 (150-400); RDW Coefficient Variation 14.2 % (11.7-14.2); RDW Standard Deviation 48.8 fL (35.1-46.3); Red Blood Cell Count 4.57 M/mm3 (4.30-5.90)
[2022-04-10 05:29] LABS: Albumin, Blood 3.1 g/dL (3.4-5.0); Albumin/Globulin Ratio 0.8 (0.8-1.8); Bun/Creatinine Ratio 6.6 (12.0-20.0); Calcium, Blood 8.2 mg/dL (8.5-10.1); Creatinine, Blood 0.6 mg/dL (0.60-1.20); Globulin, Blood 4.1 g/dL (2.2-4.0); Magnesium, Blood 1.8 mg/dL (1.6-2.4); Total Protein, Blood 7.2 g/dL (6.4-8.2)
--- NOTE | 2022-04-10 08:00 | NUR ---
pt sitting up in chair, is very [place], batteries in hearing aides, some confusion noted, is pleasant and cooperative with care, PT working with her, she is able to ambulate to the bathroom with sba, using a walker, lungs are dim t/o, resp even and unlabored, no cough noted, hrirr, tele in place running sr with pvc's, no edema noted, ppp+1, cap refill <3sec, vs stable, afebrile, iv site is clear and patent, was running ns, but recieved order to d/c it, this was done, btx4, abd flat soft nontender, voids without diff, skin frail but c/w/d, fanny, kj, call light in reach.
--- NOTE | 2022-04-10 08:00 | NUR ---
pt laying in bed, calling for pain meds, a/ox3, pleasant and cooperative with care, follows commands well, states he had a rough night, lungs are clear t/o, resp even and unlabored, no cough noted, on r/a, hrr, no edema noted, ppp unable to be felt, will check doppler, right foot is red and tender, iv site is clear and patent, infusing ns as ordered, btx4, abd flat soft nontender, reports reg bm and voids without diff, skin c/w/d except right foot as noted above, maew, up ad aurora in room, call light in reach.
--- NOTE | 2022-04-10 10:00 | NUR ---
assisted pt to the bathroom, voided about 50cc, she insists the room is a different room than she was in and is asking why we moved her, and is a bit distressed about it. explained she is in the same room and nothing has changed. call light in reach.
--- NOTE | 2022-04-10 18:04 | NUR ---
pt has been requesting iv dilaudid every two hrs, ordered oxycodone, was given this at 1539, was upset that this was ordered and told the nurse that it wont do anything and the told him specifically he would give him oral dilaudid, but did take it. called nurse an hr later very angry and said he told us it wouldn't work and needs the shot, and was angry that he had to wait while nurse tended to another pt. after he was given the medication he calmed down but insist he is to have oral dilaudid, called to confirm what was said, he was told pain medicine. no further changes. call light in reach.
[2022-04-11 05:18] LABS: BASOPHILS ABSOLUTE AUTO 0.04 K/mm3 (0.00-0.23); BASOPHILS PERCENT AUTO 1 % (0-2); EOSINOPHILS ABSOLUTE AUTO 0.14 K/mm3 (0.00-0.68); EOSINOPHILS PERCENT AUTO 5 % (0-6); Hematocrit 42.1 % (37.0-53.0); Hemoglobin 14.4 g/dL (13.5-17.5); IMMATURE GRAN PERCENT AUTO 0 % (0-1); LYMPHOCYTES ABSOLUTE AUTO 0.85 K/mm3 (0.84-5.20); LYMPHOCYTES PERCENT AUTO 29 % (21-46); MONOCYTES ABSOLUTE AUTO 0.34 K/mm3 (0.16-1.47); MONOCYTES PERCENT AUTO 12 % (4-13); Mean Corpuscular HGB 31.9 pg (26.0-34.0); Mean Corpuscular HGB Conc 34.2 g/dL (31.5-36.5); Mean Corpuscular Volume 93 fL (80-100); Mean Platelet Volume 9.9 fL (9.1-12.4); NEUTROPHILS ABSOLUTE AUTO 1.53 K/mm3 (1.96-9.15); NEUTROPHILS PERCENT AUTO 53 % (41-73); Platelet Count 147 K/mm3 (150-400); RDW Coefficient Variation 14.2 % (11.7-14.2); RDW Standard Deviation 48.5 fL (35.1-46.3); Red Blood Cell Count 4.52 M/mm3 (4.30-5.90)
[2022-04-11 05:47] LABS: Albumin, Blood 2.9 g/dL (3.4-5.0); Albumin/Globulin Ratio 0.8 (0.8-1.8); Bilirubin, Total 0.7 mg/dL (0.1-1.0); Bun/Creatinine Ratio 5.3 (12.0-20.0); Calcium, Blood 7.9 mg/dL (8.5-10.1); Creatinine, Blood 0.57 mg/dL (0.60-1.20); Globulin, Blood 3.8 g/dL (2.2-4.0); Potassium, Blood 3.2 mmol/L (3.5-5.5); Total Protein, Blood 6.7 g/dL (6.4-8.2)
[2022-04-11] MEDS ORDERED: SENN187 PO (11:38)
--- NOTE | 2022-04-11 13:26 | NUR ---
SHIFT SUMMARY- PT C/O OF PAIN, MEDICATED PER EMAR. VSS. PT INDEPENDANT IN ROOM. PT IRRITATED BUT EASLY REDIRECTED WITH HOPE OF D/C. D/C- PT EDUCATED ABOUT PAPERWORK FOR D/C. PT WHEEL CHAIRED TO ER FOR TAXI PICKUP WITH ALL BELONGINGS, HARD SCRIPT, AND PAPERWORK IN HAND.
== END 2022-04-11 13:12 | disposition home or self-care (01) ==
LOC: ER 04:07 → MEDS 13:24 → ERHOLD 13:24 → MEDS 17:24
PROVIDERS: Emergency Medicine; Family Medicine; Nurse Practitioner Acute Care; ADMIT Internal Medicine
DX: K85.90 Acute pancreatitis without necrosis or infection, unspecified (principal); K86.1 Other chronic pancreatitis; G43.909 Migraine, unspecified, not intractable, without status migrainosus; J44.9 Chronic obstructive pulmonary disease, unspecified; Z86.718 Personal history of other venous thrombosis and embolism; K21.9 Gastro-esophageal reflux disease without esophagitis; I73.1 Thromboangiitis obliterans [Buerger's disease]; Z79.01 Long term (current) use of anticoagulants; Z20.822 Contact with and (suspected) exposure to COVID-19
CPT/HCPCS: 36415; 74177; 80053; 83690; 83735; 85025; 85651; 86140; 93926; 94760; 96361; 96374-59; 96375; 96376; 99285-25; A9270; G0378; J1170; J1885; J2405; J2765; J7030; Q9967; U0004

== ENCOUNTER 2022-06-26 13:07 | Emergency (ER) | payer OTHER ==
[~2022-06-26] VITALS: Ht 193 cm; Wt 70.3 kg
[~2022-06-26 13:07] MED LIST changes: +Ventolin/Prove6.7 GM INH
[2022-06-26 14:13] LABS: BASOPHILS ABSOLUTE AUTO 0.03 K/mm3 (0.00-0.23); BASOPHILS PERCENT AUTO 0 % (0-2); EOSINOPHILS ABSOLUTE AUTO 0.01 K/mm3 (0.00-0.68); EOSINOPHILS PERCENT AUTO 0 % (0-6); Hematocrit 49.5 % (37.0-53.0); Hemoglobin 17.1 g/dL (13.5-17.5); IMMATURE GRAN ABSOLUTE AUTO 0.08 K/mm3 (0.00-0.10); IMMATURE GRAN PERCENT AUTO 1 % (0-1); LYMPHOCYTES ABSOLUTE AUTO 0.83 K/mm3 (0.84-5.20); LYMPHOCYTES PERCENT AUTO 9 % (21-46); MONOCYTES ABSOLUTE AUTO 0.86 K/mm3 (0.16-1.47); MONOCYTES PERCENT AUTO 10 % (4-13); Mean Corpuscular HGB Conc 34.5 g/dL (31.5-36.5); Mean Corpuscular Volume 84 fL (80-100); NEUTROPHILS ABSOLUTE AUTO 7.09 K/mm3 (1.96-9.15); NEUTROPHILS PERCENT AUTO 80 % (41-73); RDW Coefficient Variation 14.8 % (11.7-14.2); RDW Standard Deviation 44.1 fL (35.1-46.3)
[2022-06-26 14:21] LABS: Albumin, Blood 3.5 g/dL (3.4-5.0); Albumin/Globulin Ratio 0.7 (0.8-1.8); Bilirubin, Total 1.6 mg/dL (0.1-1.0); Bun/Creatinine Ratio 15.4 (12.0-20.0); Calcium, Blood 9.4 mg/dL (8.5-10.1); Creatinine, Blood 0.45 mg/dL (0.60-1.20); Globulin, Blood 4.7 g/dL (2.2-4.0); Potassium, Blood 3.2 mmol/L (3.5-5.5); Total Protein, Blood 8.2 g/dL (6.4-8.2)
[2022-06-26 14:36] LABS: Platelet Count 246 K/mm3 (150-400)
[2022-06-26] MEDS ORDERED: ONDA4ODT MM (16:20)
== END 2022-06-26 17:52 | disposition home or self-care (01) ==
LOC: ER 13:07
PROVIDERS: Emergency Medicine
DX: T87.81 Dehiscence of amputation stump (principal); J44.9 Chronic obstructive pulmonary disease, unspecified; Z79.899 Other long term (current) drug therapy; Z79.01 Long term (current) use of anticoagulants; Z89.511 Acquired absence of right leg below knee
CPT/HCPCS: 36415; 73590; 80053; 85025; 85651; 86141; J1170; J2405

== ENCOUNTER 2023-01-29 07:09 | Emergency (ER) | payer OTHER ==
[~2023-01-29] VITALS: Ht 137.2 cm; Wt 55.0 kg
[2023-01-29 09:51] LABS: BASOPHILS ABSOLUTE AUTO 0.01 K/mm3 (0.00-0.23); BASOPHILS PERCENT AUTO 0 % (0-2); EOSINOPHILS PERCENT AUTO 0 % (0-6); Hemoglobin 13.5 g/dL (13.5-17.5); IMMATURE GRAN ABSOLUTE AUTO 0.07 K/mm3 (0.00-0.10); IMMATURE GRAN PERCENT AUTO 1 % (0-1); LYMPHOCYTES ABSOLUTE AUTO 1.05 K/mm3 (0.84-5.20); LYMPHOCYTES PERCENT AUTO 9 % (21-46); MONOCYTES ABSOLUTE AUTO 0.42 K/mm3 (0.16-1.47); MONOCYTES PERCENT AUTO 4 % (4-13); Mean Corpuscular HGB 26.5 pg (26.0-34.0); Mean Corpuscular HGB Conc 32.9 g/dL (31.5-36.5); Mean Corpuscular Volume 80 fL (80-100); Mean Platelet Volume 8.8 fL (9.1-12.4); NEUTROPHILS ABSOLUTE AUTO 9.72 K/mm3 (1.96-9.15); NEUTROPHILS PERCENT AUTO 86 % (41-73); Platelet Count 309 K/mm3 (150-400); RDW Coefficient Variation 21.7 % (11.7-14.2); RDW Standard Deviation 57.5 fL (35.1-46.3); White Blood Cell Count 11.27 K/mm3 (4.00-11.30)
[2023-01-29 10:04] LABS: Albumin, Blood 2.9 g/dL (3.4-5.0); Albumin/Globulin Ratio 0.6 (0.8-1.8); Bilirubin, Total 1.3 mg/dL (0.1-1.0); Bun/Creatinine Ratio 16.8 (12.0-20.0); Calcium, Blood 9.7 mg/dL (8.5-10.1); Creatinine, Blood 0.36 mg/dL (0.60-1.20); Globulin, Blood 4.9 g/dL (2.2-4.0); Potassium, Blood 2.8 mmol/L (3.5-5.5); Total Protein, Blood 7.8 g/dL (6.4-8.2)
[2023-01-29 11:42] LABS: Anti-Xa UFH, PHA Monitoring <0.10 IU/mL; International Normalized Ratio 1.02; Prothrombin Time Results 10.7 Sec (9.7-11.5)
[2023-01-29 12:45] VITALS: BP 151/117
== END 2023-01-29 13:35 | disposition short-term general hospital (02) ==
LOC: ER 07:09
PROVIDERS: Student in an Organized Health Care Education/Training Program
DX: I74.5 Embolism and thrombosis of iliac artery (principal); R00.0 Tachycardia, unspecified; E87.20 Acidosis, unspecified; E87.6 Hypokalemia; E87.1 Hypo-osmolality and hyponatremia; J44.9 Chronic obstructive pulmonary disease, unspecified; Z79.01 Long term (current) use of anticoagulants; Z86.718 Personal history of other venous thrombosis and embolism; Z79.899 Other long term (current) drug therapy; Z87.891 Personal history of nicotine dependence
CPT/HCPCS: 75635; 80053; 83605; 85025; 85520; 85610; 85730; 86850; 86900; 86901; 93005; 93010; A9270; J1170; J1644; J3010; J7030; J7050; Q9967